=== PATIENT | female | born 1955 | race Asian ===

== ENCOUNTER 2017-08-30 09:10 | Day surgery (SDC) | payer OTHER ==
[2017-08-27 12:05] VITALS: BMI 33.3
[2017-08-30 09:40] LABS: BASO % 0.4 % (0-2.0); EOS % 3.3 % (0-4.5); HEMATOCRIT 35.7 % (32.4-45.2); LYMPH % 21.2 % (8-40); MCH 28.9 pg (25.7-33.7); MCHC 33.8 g/dl (32.0-36.0); MEAN CELL VOLUME 85.7 fl (80-96); MEAN PLT VOLUME 7.2 fl (7.5-11.1); MONO % 12.6 % (3.8-10.2); NEUT % 62.5 % (42.8-82.8); PLATELET COUNT 304 K/MM3 (134-434); RBC 4.16 M/mm3 (3.60-5.2); WHITE BLOOD COUNT 5.4 K/mm3 (4.0-10.0)
[2017-08-30 09:57] LABS: INR 0.99 (0.82-1.09); PROTHROMBIN TIME (PATIENT) 11.2 SEC (9.98-11.88)
[2017-08-30] MEDS ORDERED: PORTA CATH FLUSH 10 ML IVPUSH PRN (11:01)
[2017-08-30] MEDS ORDERED: MIDAZOLAM HCL 2 MG/2 ML SINGLE DOSE VIAL ONE (13:02)
[2017-08-30] MEDS ORDERED: ACETAMINOPHEN 325 MG TABLET (FP) ONE (15:13)
[2017-08-30] MEDS ORDERED: oxyCODONE HCL 5 MG TABLET ONE (15:13)
[2017-08-30 16:11] VITALS: BP 124/69; PULSE 77; TEMP 98.5
== END 2017-08-30 16:16 | disposition home or self-care (01) ==
LOC: JRADIR 09:10
PROVIDERS: ATTEND Internal Medicine Hematology & Oncology
PROC: 02HV33Z Insertion of Infusion Device into Superior Vena Cava, Percutaneous Approach (ICD-10-PCS; principal; 2017-08-30)
PROC: B518ZZA Fluoroscopy of Superior Vena Cava, Guidance (ICD-10-PCS; 2017-08-30)
DX: C18.9 Malignant neoplasm of colon, unspecified (principal)
CPT/HCPCS: 36561; 76937; 77001; C1751; 36415; 85025; 85610; C1788

== ENCOUNTER 2017-09-07 07:30 | Day surgery (SDC) | payer OTHER ==
[2017-09-07] MEDS ORDERED: DEXAMETHASONE SOD PHOSPHATE 10 MG/1 ML VIAL IVPUSH ONE (08:00)
[2017-09-07] MEDS ORDERED: PALONOSETRON HCL 0.25 MG/5 ML VIAL IVPUSH ONE (08:00)
[2017-09-07] MEDS ORDERED: WATER IV ONE (08:30)
[2017-09-07] MEDS ORDERED: DEXTROSE 5% IV ONE (08:30)
[2017-09-07] MEDS ORDERED: LEUCOVORIN INJECTION - 704 MG in DEXTROSE 5%-WATER - 250 ML IVPB ONE (08:30)
[2017-09-07] MEDS ORDERED: OXALIPLATIN IV ONE (08:30)
[2017-09-07 09:26] LABS: BASO % 0.3 % (0-2.0); EOS % 3.2 % (0-4.5); HEMATOCRIT 36.4 % (32.4-45.2); HEMOGLOBIN 12.4 GM/dL (10.7-15.3); MCH 29.3 pg (25.7-33.7); MEAN CELL VOLUME 86.3 fl (80-96); MEAN PLT VOLUME 7.4 fl (7.5-11.1); MONO % 11.3 % (3.8-10.2); NEUT % 68.2 % (42.8-82.8); PLATELET COUNT 283 K/MM3 (134-434); RBC 4.22 M/mm3 (3.60-5.2); RDW 13.5 % (11.6-15.6); WHITE BLOOD COUNT 5.6 K/mm3 (4.0-10.0)
[2017-09-07 09:41] LABS: ALBUMIN 3.6 g/dl (3.4-5.0); ANION GAP 5 (8-16); BILIRUBIN,DIRECT < 0.2 mg/dL (0.0-0.2); BILIRUBIN,TOTAL 0.2 mg/dL (0.2-1.0); BLOOD UREA NITROGEN 14 mg/dL (7-18); CALCIUM 8.5 mg/dL (8.5-10.1); CHLORIDE 110 mmol/L (98-107); CO2 25 mmol/L (21-32); CREATININE 1.1 mg/dL (0.55-1.02); GLUCOSE,RANDOM 85 mg/dL (74-106); SGOT/AST 13 U/L (15-37); SGPT/ALT 27 U/L (12-78); SODIUM 140 mmol/L (136-145); TOT PROT 7.4 g/dl (6.4-8.2)
[2017-09-07 09:42] LABS: ALK PHOS 110 U/L (45-117)
[2017-09-07] MEDS ORDERED: SODIUM CHLORIDE 500 ML IV SCH (10:15)
[2017-09-07] MEDS ORDERED: FLUOROURACIL 2,500 MG/50 ML VIAL IVPUSH ONE (10:30)
[2017-09-07] MEDS ORDERED: FLUOROURACIL 4,225 MG in SODIUM CHLORIDE 7.5 ML CP ONE (10:40)
[2017-09-07 18:37] VITALS: BP 124/72; PULSE 84
[2017-09-07 18:39] VITALS: TEMP 98
== END 2017-09-07 16:15 | disposition home or self-care (01) ==
LOC: JONCCHEMO 07:30 → J7W 10:16 → JONCCHEMO 16:15
PROVIDERS: ATTEND Internal Medicine Hematology & Oncology
DX: Z51.11 Encounter for antineoplastic chemotherapy (principal); C20 Malignant neoplasm of rectum
CPT/HCPCS: 36415; 80053; 80076; 83735; 85025; 96361; 96367; 96375; 96413; 96415; 96417; G0498; J1100; J2469; J7030; J9263

== ENCOUNTER 2017-09-09 07:24 | Day surgery (SDC) | payer OTHER ==
[2017-09-09 14:04] VITALS: BP 107/72; PULSE 83; TEMP 98.3
[2017-09-09] MEDS ORDERED: BACITRACIN 15 GM TUBE TOPICAL OINTMENT TP SCH (14:15)
== END 2017-09-09 14:30 | disposition home or self-care (01) ==
LOC: JONCNONCHE 07:24 → J7W 13:30 → JONCNONCHE 14:30
PROVIDERS: ATTEND Internal Medicine Hematology & Oncology
PROC: 0JPVXVZ Removal of Infusion Pump from Upper Extremity Subcutaneous Tissue and Fascia, External Approach (ICD-10-PCS; principal; 2017-09-09)
DX: Z53.8 Procedure and treatment not carried out for other reasons (principal)

== ENCOUNTER 2017-09-21 07:28 | Day surgery (SDC) | payer OTHER ==
[2017-09-21] MEDS ORDERED: DEXAMETHASONE SOD PHOSPHATE 10 MG/1 ML VIAL IVPUSH ONE (08:00)
[2017-09-21] MEDS ORDERED: PALONOSETRON HCL 0.25 MG/5 ML VIAL IVPUSH ONE (08:00)
[2017-09-21] MEDS ORDERED: LEUCOVORIN INJECTION - 704 MG in DEXTROSE 5%-WATER - 250 ML IVPB ONE (08:30)
[2017-09-21] MEDS ORDERED: OXALIPLATIN 100 MG, OXALIPLATIN 50 MG in DEXTROSE 5%-WATER - 500 ML IV ONE (08:30)
[2017-09-21 09:03] LABS: BASO % 0.2 % (0-2.0); HEMATOCRIT 34.4 % (32.4-45.2); HEMOGLOBIN 11.6 GM/dL (10.7-15.3); LYMPH % 38.9 % (8-40); MCH 28.9 pg (25.7-33.7); MCHC 33.8 g/dl (32.0-36.0); MEAN CELL VOLUME 85.6 fl (80-96); MONO % 15.4 % (3.8-10.2); NEUT % 42.5 % (42.8-82.8); PLATELET COUNT 267 K/MM3 (134-434); RBC 4.03 M/mm3 (3.60-5.2); RDW 14.1 % (11.6-15.6); WHITE BLOOD COUNT 3.3 K/mm3 (4.0-10.0)
[2017-09-21 09:34] LABS: ALBUMIN 3.4 g/dl (3.4-5.0); ALK PHOS 105 U/L (45-117); ANION GAP 7 (8-16); BILIRUBIN,DIRECT < 0.2 mg/dL (0.0-0.2); BILIRUBIN,TOTAL 0.2 mg/dL (0.2-1.0); BLOOD UREA NITROGEN 21 mg/dL (7-18); CALCIUM 8.4 mg/dL (8.5-10.1); CHLORIDE 108 mmol/L (98-107); CO2 21 mmol/L (21-32); CREATININE 1.3 mg/dL (0.55-1.02); GLUCOSE,RANDOM 108 mg/dL (74-106); MAGNESIUM 1.8 mg/dL (1.8-2.4); POTASSIUM 4.2 mmol/L (3.5-5.1); SGOT/AST 18 U/L (15-37); SGPT/ALT 27 U/L (12-78); SODIUM 136 mmol/L (136-145); TOT PROT 6.9 g/dl (6.4-8.2)
[2017-09-21] MEDS ORDERED: DEXAMETHASONE SOD PHOSPHATE 10 MG/1 ML VIAL IVPB ONE (10:30)
[2017-09-21] MEDS ORDERED: FLUOROURACIL 2,500 MG/50 ML VIAL IVPUSH ONE (10:30)
[2017-09-21] MEDS ORDERED: FLUOROURACIL 4,225 MG in SODIUM CHLORIDE 7.5 ML IV ONE (10:40)
[2017-09-21 16:30] VITALS: BP 124/80; PULSE 89
[2017-09-21] MEDS ORDERED: PORTA CATH FLUSH 10 ML IVPUSH ONE (16:30)
[2017-09-21 16:47] VITALS: TEMP 97.6
== END 2017-09-21 11:30 | disposition home or self-care (01) ==
LOC: JONCCHEMO 07:28 → J7W 09:43 → JONCCHEMO 11:30
PROVIDERS: ATTEND Internal Medicine Hematology & Oncology
PROC: 3E043GC Introduction of Other Therapeutic Substance into Central Vein, Percutaneous Approach (ICD-10-PCS; principal; 2017-09-21)
DX: Z51.11 Encounter for antineoplastic chemotherapy (principal); C20 Malignant neoplasm of rectum; Z53.8 Procedure and treatment not carried out for other reasons
CPT/HCPCS: 36415; 80053; 80076; 83735; 85025; 96417; J1100

== ENCOUNTER 2017-09-28 07:26 | Day surgery (SDC) | payer OTHER ==
[2017-09-28] MEDS ORDERED: DEXAMETHASONE IVPB ONE (08:00)
[2017-09-28] MEDS ORDERED: SODIUM CHLORIDE IVPB ONE (08:00)
[2017-09-28] MEDS ORDERED: DIPHENHYDRAMINE IVPB ONE (08:00)
[2017-09-28] MEDS ORDERED: PALONOSETRON HCL 0.25 MG/5 ML VIAL IVPUSH ONE (08:00)
[2017-09-28] MEDS ORDERED: DEXAMETHASONE SOD PHOSPHATE 10 MG/1 ML VIAL IVPUSH ONE (08:00)
[2017-09-28] MEDS ORDERED: LEUCOVORIN INJECTION - 704 MG in DEXTROSE 5%-WATER - 250 ML IVPB ONE (08:30)
[2017-09-28] MEDS ORDERED: OXALIPLATIN 100 MG, OXALIPLATIN 50 MG in DEXTROSE 5%-WATER - 500 ML IV ONE (08:30)
[2017-09-28 09:52] LABS: HEMOGLOBIN 11.8 GM/dL (10.7-15.3); MCH 29.2 pg (25.7-33.7); MCHC 33.7 g/dl (32.0-36.0); MEAN CELL VOLUME 86.8 fl (80-96); MEAN PLT VOLUME 7.1 fl (7.5-11.1); PLATELET COUNT 324 K/MM3 (134-434); RBC 4.04 M/mm3 (3.60-5.2); RDW 14.7 % (11.6-15.6); WHITE BLOOD COUNT 7.1 K/mm3 (4.0-10.0)
[2017-09-28 10:08] LABS: ALBUMIN 3.5 g/dl (3.4-5.0); ANION GAP 5 (8-16); BILIRUBIN,DIRECT < 0.2 mg/dL (0.0-0.2); BLOOD UREA NITROGEN 9 mg/dL (7-18); CALCIUM 8.8 mg/dL (8.5-10.1); CHLORIDE 107 mmol/L (98-107); CO2 26 mmol/L (21-32); CREATININE 1.1 mg/dL (0.55-1.02); GLUCOSE,RANDOM 114 mg/dL (74-106); MAGNESIUM 1.9 mg/dL (1.8-2.4); POTASSIUM 4.3 mmol/L (3.5-5.1); SGOT/AST 24 U/L (15-37); SGPT/ALT 32 U/L (12-78); SODIUM 138 mmol/L (136-145)
[2017-09-28 10:09] LABS: ALK PHOS 100 U/L (45-117); BILIRUBIN,TOTAL 0.2 mg/dL (0.2-1.0); TOT PROT 7.1 g/dl (6.4-8.2)
[2017-09-28] MEDS ORDERED: FLUOROURACIL 2,500 MG/50 ML VIAL IVPUSH ONE (10:30)
[2017-09-28] MEDS ORDERED: FLUOROURACIL 4,225 MG in SODIUM CHLORIDE 7.5 ML CP ONE (10:45)
[2017-09-28] MEDS ORDERED: SODIUM CHLORIDE 500 ML IV SCH (11:45)
[2017-09-28 13:17] LABS: PLATELET ESTIMATE NORMAL
[2017-09-28 15:35] VITALS: BP 132/78; PULSE 72; TEMP 97.6
== END 2017-09-28 15:20 | disposition home or self-care (01) ==
LOC: JONCCHEMO 07:26 → J7W 10:00 → JONCCHEMO 15:20
PROVIDERS: ATTEND Internal Medicine Hematology & Oncology
DX: Z51.11 Encounter for antineoplastic chemotherapy (principal); C20 Malignant neoplasm of rectum
CPT/HCPCS: 36415; 80053; 80076; 83735; 85025; 96367; 96375; 96409; 96413; 96415; 96417; G0498; J1100; J2469; J9263

== ENCOUNTER 2017-10-12 07:19 | Day surgery (SDC) | payer OTHER ==
[2017-10-12] MEDS ORDERED: DEXAMETHASONE INJECTION 20 MG in SODIUM CHLORIDE 100 ML IVPB ONE (10:00)
[2017-10-12] MEDS ORDERED: PALONOSETRON HCL 0.25 MG/5 ML VIAL IVPUSH ONE (10:00)
[2017-10-12] MEDS ORDERED: DEXAMETHASONE SOD PHOSPHATE 10 MG/1 ML VIAL IVPUSH ONE (10:00)
[2017-10-12] MEDS ORDERED: OXALIPLATIN IV ONE (10:30)
[2017-10-12] MEDS ORDERED: WATER IV ONE (10:30)
[2017-10-12] MEDS ORDERED: DEXTROSE 5% IV ONE (10:30)
[2017-10-12] MEDS ORDERED: LEUCOVORIN INJECTION - 704 MG in DEXTROSE 5%-WATER - 250 ML IVPB ONE (10:30)
[2017-10-12 11:23] LABS: BASO % 0.3 % (0-2.0); EOS % 8.1 % (0-4.5); HEMATOCRIT 34.4 % (32.4-45.2); HEMOGLOBIN 11.8 GM/dL (10.7-15.3); LYMPH % 33.3 % (8-40); MCH 29.4 pg (25.7-33.7); MCHC 34.4 g/dl (32.0-36.0); MEAN CELL VOLUME 85.6 fl (80-96); MEAN PLT VOLUME 7.3 fl (7.5-11.1); MONO % 18.5 % (3.8-10.2); NEUT % 39.8 % (42.8-82.8); PLATELET COUNT 228 K/MM3 (134-434); RBC 4.02 M/mm3 (3.60-5.2); RDW 14.8 % (11.6-15.6); WHITE BLOOD COUNT 2.7 K/mm3 (4.0-10.0)
[2017-10-12 12:00] LABS: ALBUMIN 3.8 g/dl (3.4-5.0); ALK PHOS 108 U/L (45-117); ANION GAP 9 (8-16); BILIRUBIN,TOTAL 0.3 mg/dL (0.2-1.0); BLOOD UREA NITROGEN 12 mg/dL (7-18); CHLORIDE 107 mmol/L (98-107); CO2 22 mmol/L (21-32); CREATININE 1.4 mg/dL (0.55-1.02); GLUCOSE,RANDOM 117 mg/dL (74-106); POTASSIUM 4.9 mmol/L (3.5-5.1); SGOT/AST 20 U/L (15-37); SGPT/ALT 27 U/L (12-78); SODIUM 138 mmol/L (136-145); TOT PROT 7.4 g/dl (6.4-8.2)
[2017-10-12 12:28] LABS: ALBUMIN 3.6 g/dl (3.4-5.0); ALK PHOS 108 U/L (45-117); BILIRUBIN,DIRECT < 0.2 mg/dL (0.0-0.2); BILIRUBIN,TOTAL 0.2 mg/dL (0.2-1.0); MAGNESIUM 1.9 mg/dL (1.8-2.4); SGOT/AST 21 U/L (15-37); SGPT/ALT 26 U/L (12-78); TOT PROT 7.3 g/dl (6.4-8.2)
[2017-10-12] MEDS ORDERED: FLUOROURACIL 500 MG/10 ML VIAL IVPUSH ONE (12:30)
[2017-10-12] MEDS ORDERED: FLUOROURACIL 4,225 MG in SODIUM CHLORIDE 7.5 ML IV ONE (12:45)
[2017-10-12] MEDS ORDERED: SODIUM CHLORIDE 1,000 ML IV SCH (13:30)
[2017-10-12 17:18] VITALS: TEMP 98
[2017-10-12 17:31] VITALS: BP 96/68; PULSE 72
== END 2017-10-12 17:31 | disposition home or self-care (01) ==
LOC: JONCCHEMO 07:19 → J7W 13:10 → JONCCHEMO 17:31
PROVIDERS: ATTEND Internal Medicine Hematology & Oncology
DX: Z51.11 Encounter for antineoplastic chemotherapy (principal); C20 Malignant neoplasm of rectum
CPT/HCPCS: 36415; 80053; 80076; 83735; 85025; 96361; 96366; 96367; 96375; 96413; 96415; 96417; J1100; J2469; J7030; J9263

== ENCOUNTER 2017-10-15 07:37 | Day surgery (SDC) | payer OTHER ==
[2017-10-15] MEDS ORDERED: TBO-FILGRASTIM 480 MCG/0.8 ML DISP.SYRIN SQ ONE (10:00)
[2017-10-15] MEDS ORDERED: SODIUM CHLORIDE 500 ML IV SCH (10:15)
[2017-10-15 11:37] VITALS: TEMP 97.8
[2017-10-15 12:45] VITALS: BP 115/71; PULSE 81
== END 2017-10-15 12:47 | disposition home or self-care (01) ==
LOC: JONCCHEMO 07:37 → J7W 09:20 → JONCCHEMO 12:47
PROVIDERS: ATTEND Internal Medicine Hematology & Oncology
PROC: 3E0437Z Introduction of Electrolytic and Water Balance Substance into Central Vein, Percutaneous Approach (ICD-10-PCS; principal; 2017-10-15)
PROC: 3E013GC Introduction of Other Therapeutic Substance into Subcutaneous Tissue, Percutaneous Approach (ICD-10-PCS; 2017-10-15)
DX: C20 Malignant neoplasm of rectum (principal); Z76.89 Persons encountering health services in other specified circumstances
CPT/HCPCS: 96360; 96361; 96372; J1447; J7030

== ENCOUNTER 2017-10-16 09:42 | Day surgery (SDC) | payer OTHER ==
[2017-10-16] MEDS ORDERED: TBO-FILGRASTIM 480 MCG/0.8 ML DISP.SYRIN SQ ONE (10:00)
[2017-10-16] MEDS ORDERED: TBO-FILGRASTIM 300 MCG/0.5 ML DISP.SYRINGE SQ ONE (11:00)
[2017-10-16 13:45] VITALS: BP 114/75; PULSE 95; TEMP 98.1
== END 2017-10-16 11:56 | disposition home or self-care (01) ==
LOC: JONCCHEMO 09:42 → J7W 09:52 → JONCCHEMO 11:56
PROVIDERS: ATTEND Internal Medicine Hematology & Oncology
PROC: 3E013GC Introduction of Other Therapeutic Substance into Subcutaneous Tissue, Percutaneous Approach (ICD-10-PCS; principal; 2017-10-16)
DX: C20 Malignant neoplasm of rectum (principal); Z76.89 Persons encountering health services in other specified circumstances
CPT/HCPCS: 96372; J1447

== ENCOUNTER 2017-10-18 07:47 | Day surgery (SDC) | payer OTHER ==
[2017-10-18] MEDS ORDERED: TBO-FILGRASTIM 480 MCG/0.8 ML DISP.SYRIN SQ ONE (10:00)
[2017-10-18 13:39] VITALS: BP 139/77; PULSE 94; TEMP 97.9
== END 2017-10-18 11:00 | disposition home or self-care (01) ==
LOC: JONCCHEMO 07:47 → J7W 10:29 → JONCCHEMO 11:00
PROVIDERS: ATTEND Internal Medicine Hematology & Oncology
PROC: 3E013GC Introduction of Other Therapeutic Substance into Subcutaneous Tissue, Percutaneous Approach (ICD-10-PCS; principal; 2017-10-18)
DX: C20 Malignant neoplasm of rectum (principal); Z76.89 Persons encountering health services in other specified circumstances
CPT/HCPCS: 96372; J1447

== ENCOUNTER 2017-10-26 07:33 | Inpatient (IN) | payer OTHER ==
[2017-10-26 09:15] LABS: HEMATOCRIT 37.9 % (32.4-45.2); HEMOGLOBIN 13.2 GM/dL (10.7-15.3); MCH 30.5 pg (25.7-33.7); MCHC 34.9 g/dl (32.0-36.0); MEAN CELL VOLUME 87.3 fl (80-96); MEAN PLT VOLUME 8.3 fl (7.5-11.1); PLATELET COUNT 141 K/MM3 (134-434); RBC 4.34 M/mm3 (3.60-5.2); RDW 16.9 % (11.6-15.6); WHITE BLOOD COUNT 10.3 K/mm3 (4.0-10.0)
[2017-10-26] MEDS ORDERED: SODIUM CHLORIDE 500 ML IV STA (09:49)
[2017-10-26 09:53] LABS: ALBUMIN 3.3 g/dl (3.4-5.0); ALK PHOS 105 U/L (45-117); ANION GAP 7 (8-16); BILIRUBIN,DIRECT < 0.2 mg/dL (0.0-0.2); BILIRUBIN,TOTAL 0.3 mg/dL (0.2-1.0); BLOOD UREA NITROGEN 24 mg/dL (7-18); CALCIUM 8.6 mg/dL (8.5-10.1); CHLORIDE 106 mmol/L (98-107); CO2 21 mmol/L (21-32); CREATININE 1.6 mg/dL (0.55-1.02); GLUCOSE,RANDOM 120 mg/dL (74-106); MAGNESIUM 1.6 mg/dL (1.8-2.4); POTASSIUM 4.4 mmol/L (3.5-5.1); SGOT/AST 28 U/L (15-37); SGPT/ALT 49 U/L (12-78); SODIUM 134 mmol/L (136-145); TOT PROT 6.6 g/dl (6.4-8.2)
[2017-10-26] MEDS ORDERED: DEXAMETHASONE INJECTION 10 MG in SODIUM CHLORIDE 50 ML IVPB ONE (10:00)
[2017-10-26] MEDS ORDERED: PALONOSETRON HCL 0.25 MG/5 ML VIAL IVPUSH ONE (10:00)
[2017-10-26] MEDS ORDERED: DEXTROSE 5% IV ONE (10:30)
[2017-10-26] MEDS ORDERED: LEUCOVORIN INJECTION - 704 MG in DEXTROSE 5%-WATER - 250 ML IVPB ONE (10:30)
[2017-10-26] MEDS ORDERED: WATER IV ONE (10:30)
[2017-10-26] MEDS ORDERED: OXALIPLATIN IV ONE (10:30)
[2017-10-26 10:56] LABS: PLATELET ESTIMATE NORMAL; TEAR DROP CELLS 1+
[2017-10-26] MEDS ORDERED: MAGNESIUM 1GM/D5W 100ML - 100 ML IVPB IVPB ONE (12:05)
[2017-10-26] MEDS ORDERED: SODIUM CHLORIDE 1,000 ML IV SCH ×3 (12:15→15:11)
[2017-10-26] MEDS ORDERED: FLUOROURACIL 4,225 MG in SODIUM CHLORIDE 7.5 ML CP ONE (12:30)
[2017-10-26] MEDS ORDERED: EPINEPHrine/PF 1 MG/1 ML (1:1,000) AMPULE IM ONE (13:30)
[2017-10-26] MEDS ORDERED: methylPREDNISolone NA SUCC 125 MG/2 ML VIAL IVPUSH ONE (13:30)
[2017-10-26] MEDS ORDERED: FAMOTIDINE 20 MG/50 ML IVPB 20 MG/50 ML MG IVPB ONE (13:40)
--- NOTE | 2017-10-26 13:43 | RAPID ---
Physical Examination Vital Signs: Vital Signs Temperature 97.6 F 10/26/17 10:15 Pulse Rate 86 10/26/17 10:15 Respiratory Rate 20 10/26/17 10:15 Blood Pressure 121/81 10/26/17 10:15 O2 Sat by Pulse Oximetry (%) Labs: CBC, BMP 10/26/17 08:50 10/26/17 08:50 Rapid Response - Rapid Response Assessment: Rapid response called at 1:34 PM Pt is a cancer patient who was receiving her leucovorin and oxaliplatin infusion and was found to have shortness of breath and tachycardia. Infusion had been completed, and patient walked to the bathroom and back to her seat at which point she became symptomatic. Initial vital signs 149/85 HR 158, O2 sat 85, Resp 28 1:40 PM 162/87, HR 155 Pt aaox3 in respiratory distress. Pt was given: Benadryl 50mg Epi sub Q 1 mg Solumedrol 125 IV Famotidine Decadron 20mg Albuterol nebs CXR, EKG, Pulm consult Pt to be admitted under primary care doc. Pt currently stable and no longer in distress. Edgar Arias MD PGY-1 IM
[2017-10-26] MEDS ORDERED: DEXAMETHASONE SOD PHOSPHATE 10 MG/1 ML VIAL IVPB ONE (13:48)
[2017-10-26] MEDS ORDERED: DEXAMETHASONE SOD PHOSPHATE 10 MG/1 ML VIAL ONE (13:55)
[2017-10-26] MEDS ORDERED: ALBUTEROL SO4 0.083% IH SOL 2.5 MG/3 ML VIAL.NEB. NEB PRN ×2 (14:24→15:02)
[2017-10-26] MEDS ORDERED: ALBUTEROL SO4 0.083% IH SOL 2.5 MG/3 ML VIAL.NEB. NEB ONE (14:30)
--- NOTE | 2017-10-26 14:40 | EKG ---
Test Reason : Blood Pressure : / mmHG Vent. Rate : 120 BPM Atrial Rate : 120 BPM P-R Int : 000 ms QRS Dur : 106 ms QT Int : 396 ms P-R-T Axes : 000 -47 054 degrees QTc Int : 559 ms SINUS TACHYCARDIA LEFT AXIS DEVIATION INCOMPLETE RIGHT BUNDLE BRANCH BLOCK PROLONGED QT ABNORMAL ECG NO PREVIOUS ECGS AVAILABLE Confirmed by MD Jose, Oscar ([id number]) on 10/26/2017 2:40:08 PM Referred By: LEANA CURTIS Confirmed By:Oscar Garcia MD
--- NOTE | 2017-10-26 14:43 | PN ---
Progress Note (short form) - Note Progress Note: is here for adjuvant FOLFOX ( C4 ) h/o rectal Ca, s/p leslie-adjuvant chemo with Xeloda RT / surgery and presently on adjuvant FOLFOX. Rapid response called today AFTER completion of oxaliplatin. Vitals noted. O/E: IN acute distress NCAT Tachy +stridor poor inspiratory effort No CCE Labs noted from this am. Assessment/Plan: Severe HSN reaction, oxaliplatin induced. Plan: s/p meds per protocol now pt back to baseline admit cxr pulm c/s Renal c/s for Cr of 1.6 close observation IVF. not to hang 5FU pump. PMD made aware Temp Pulse Resp BP Pulse Ox 97.6 F 86 20 121/81 10/26/17 10:15 10/26/17 10:15 10/26/17 10:15 10/26/17 10:15 CBC, BMP 10/26/17 08:50 10/26/17 08:50 Current Medications Generic Name Dose Route Start Last Admin Trade Name Freq PRN Reason Stop Dose Admin Albuterol Sulfate 1 amp 10/26/17 14:24 Ventolin 0.083% Nebulizer Soln - NEB Q1H PRN SHORT OF BREATH/WHEEZING Fluorouracil 4,225 mg/ Sodium 92 mls @ 2 mls/hr 10/26/17 12:30 Chloride CP 10/28/17 10:29 ONCE ONE Sodium Chloride 1,000 mls @ 250 mls/hr 10/26/17 12:15 10/26/17 13:13 Normal Saline - IV 250 mls/hr ASDIR KENNY Administration Sodium Chloride 1,000 mls @ 75 mls/hr 10/26/17 14:00 Normal Saline - IV ASDIR KENNY
--- NOTE | 2017-10-26 14:48 | CON.PULM ---
Consult Consult Specialty:: PULM/CCM Referred by:: SAUL Reason for Consultation:: SOB - History of Present Illness Chief Complaint: SOB History of Present Illness: 62 F, known Rectal CA, S/P colostomy placement. Today was receiving her 4th cycle of leucovorin and oxaliplatin infusion. Infusion was complete and she ambulated to the bathroom and developed acute onset of shortness of breath, chest tightness, and tachycardia. O2 saturation was noted to drop to 77%. She placed on supplemental O2 and and was given: Benadryl 50mg / Epi sub Q 1 mg / Solumedrol 125 IV / Famotidine / Decadron 20mg / Albuterol nebs Currently she is awake and alert on 2 L NC O2 saturating 100%. At this time she denies CP or SOB. She reports feeling weak and tired. CXR: Clear / no acute process - History Source History Provided By: Patient Limitations to Obtaining History: Language Barrier - Past Medical History Gastrointestinal: Yes: Cancer - Alcohol/Substance Use Hx Alcohol Use: No - Smoking History Smoking history: Never smoked Have you smoked in the past 12 months: No Home Medications - Allergies Allergies/Adverse Reactions: Allergies Allergy/AdvReac Type Severity Reaction Status Date / Time No Known Allergies Allergy Verified 08/30/17 09:51 - Home Medications Home Medications: Ambulatory Orders Amlodipine Besylate 5 mg PO HS 08/27/17 Levothyroxine [Synthroid -] 25 mcg PO DAILY 08/27/17 Metoprolol Succinate [Toprol Xl] 50 mg PO DAILY 08/27/17 Review of Systems - Review of Systems Constitutional: reports: Malaise. denies: Chills, Fever, Night Sweats, Unintentional Wgt. Loss, Weakness Eyes: reports: No Symptoms HENT: reports: No Symptoms Neck: reports: No Symptoms Cardiovascular: reports: Shortness of Breath. denies: Chest Pain, Edema, Palpitations Respiratory: reports: Cough, SOB, SOB on Exertion, Wheezing. denies: Hemoptysis Gastrointestinal: reports: No Symptoms. denies: Abdominal Pain, Constipation, Melena, Rectal Bleeding, Vomiting, Vomiting Blood Genitourinary: reports: No Symptoms Breasts: reports: No Symptoms Reported Musculoskeletal: reports: No Symptoms Integumentary: reports: No Symptoms Neurological: reports: No Symptoms Endocrine: reports: No Symptoms Hematology/Lymphatic: reports: No Symptoms Psychiatric: reports: No Symptoms Physical Exam Vital Sings: Vital Signs Temperature 97.6 F 10/26/17 10:15 Pulse Rate 86 10/26/17 10:15 Respiratory Rate 20 10/26/17 10:15 Blood Pressure 121/81 10/26/17 10:15 O2 Sat by Pulse Oximetry (%) Constitutional: Yes: No Distress, Calm Eyes: Yes: Conjunctiva Clear, EOM Intact HENT: Yes: Atraumatic, Normocephalic Neck: Yes: Supple, Trachea Midline Cardiovascular: Yes: Regular Rate and Rhythm Respiratory: Yes: CTA Bilaterally, On Nasal O2. No: Accessory Muscle Use, Rales , Rhonchi, Stridor, Tachypnea ...Inspection: Yes: WNL ...Clubbing: No Gastrointestinal: Yes: WNL, Normal Bowel Sounds, Soft Renal/: Yes: WNL Musculoskeletal: Yes: WNL Extremities: Yes: WNL Edema: No Peripheral Pulses WNL: Yes Integumentary: Yes: WNL Neurological: Yes: WNL, Alert, Oriented ...Motor Strength: WNL Psychiatric: Yes: WNL, Alert, Oriented Labs: CBC, BMP 10/26/17 08:50 10/26/17 08:50 Imaging - Results Chest X-ray: Image Reviewed Problem List - Problems (1) Rectal cancer Code(s): C20 - MALIGNANT NEOPLASM OF RECTUM (2) Shortness of breath Code(s): R06.02 - SHORTNESS OF BREATH (3) Acute bronchospasm Code(s): J98.01 - ACUTE BRONCHOSPASM (4) Obesity Code(s): E66.9 - OBESITY, UNSPECIFIED (5) Renal insufficiency Code(s): N28.9 - DISORDER OF KIDNEY AND URETER, UNSPECIFIED Assessment/Plan Medrol O2 to maintain saturation BD TX Cardiology evaluation called for prolonged QT on EKG IVF No clear reason to continue PPI Low threshold to check cultures and ABX for febrile illness Currently stable on NC O2, but can be moved to a monitored setting if her clinical condition changes Will follow Thank you Dr Clifton
--- NOTE | 2017-10-26 15:10 | CONSULT ---
Consult - text type - Consultation Consultation Note: Renal Consult for FABIAN This is a 62 year old woman with PMhx of Rectal Ca s/p resection and colostomy who was admitted s/p hypersensativity reaction during chemo infusion today. Pt noted to have rising Cr and was 1.6 today. Pt denies any history of kidney disease, kidney stones. Denies any NSAID use. Unclear if she had any recent contrast exposure. Pt reports having very loose output from her ostomy yesterday and filled up 4-5 bags. Making urine today, no hematuria. No sob or chest pain now. PMhx: as above Allergies: NDKA family Hx: NC Social hx: No T/A/D ROS: as per HPI Vital Signs Temperature 97.6 F 10/26/17 10:15 Pulse Rate 86 10/26/17 10:15 Respiratory Rate 20 10/26/17 10:15 Blood Pressure 121/81 10/26/17 10:15 O2 Sat by Pulse Oximetry (%) Intake & Output 10/23/17 10/24/17 10/25/17 10/26/17 23:59 23:59 23:59 23:59 Weight 68.946 kg NAD, awake and alert MMM, No JVD Neck supple RRR, No M/R CTA soft NT/ND + ostomy No LE edema CBC, BMP 10/26/17 08:50 10/26/17 08:50 Laboratory Tests 10/26/17 08:50 Calcium 8.6 Magnesium 1.6 L Albumin 3.3 L Current Medications Albuterol Sulfate (Ventolin 0.083% Nebulizer Soln -) 1 amp NEB RTID KENNY Albuterol Sulfate (Ventolin 0.083% Nebulizer Soln -) 1 amp NEB Q4H PRN PRN Reason: SHORT OF BREATH/WHEEZING Fluorouracil 4,225 mg/ Sodium (Chloride) 92 mls @ 2 mls/hr CP ONCE ONE Stop: 10/28/17 10:29 Sodium Chloride (Normal Saline -) 1,000 mls @ 250 mls/hr IV ASDIR KENNY Last Admin: 10/26/17 13:13 Dose: 250 mls/hr Sodium Chloride (Normal Saline -) 1,000 mls @ 75 mls/hr IV ASDIR KENNY Methylprednisolone Sodium Succinate (Solu-Medrol -) 40 mg IVPUSH Q8H-IV KENNY 62 year old woman with PMhx of Rectal Ca s/p resection and colostomy who was admitted s/p hypersensativity reaction during chemo infusion today with Cr of 1.6. #FABIAN likely secondary to volume depletion vs AIN vs. obstruction, unlikely tumor lysis as pt has a solid tumor or chemo induced #Rectal Ca on Chemo #Hypersensativity reaction #Hypomagnesemia Check urine studies for FeNa, UPCR, Urine Eos Renal US to access kidney size and texture Continue IVF hydration with NS at 100cc per hours x 24 hours Continue supportive care Give Mg sulfate 2g IVPB Thank you Will follow Yomi Flores DO
[2017-10-26] MEDS: methylPREDNISolone NA SUCC 40 MG/1 ML VIAL IVPUSH SCH (18:03)
[2017-10-26 19:42] LABS: URINE APPEARANCE CLEAR; URINE BILIRUBIN NEGATIVE (<2.0 mg/dL); URINE COLOR COLORLESS; URINE GLUCOSE (UA) NEGATIVE (NEGATIVE); URINE KETONE NEGATIVE (NEGATIVE); URINE LEUK ESTERASE NEGATIVE (NEGATIVE); URINE NITRITE NEGATIVE (NEGATIVE); URINE PROTEIN NEGATIVE (NEGATIVE); URINE UROBILINOGEN NEGATIVE mg/dL (0.2-1.0)
[2017-10-26 19:56] LABS: URINE CREATININE < 13.0 mg/dL (20-320)
[2017-10-26] MEDS: ALBUTEROL SO4 0.083% IH SOL 2.5 MG/3 ML VIAL.NEB. NEB SCH (20:48)
[2017-10-27] MEDS: methylPREDNISolone NA SUCC 40 MG/1 ML VIAL IVPUSH SCH ×3 (02:17→18:19)
[2017-10-27] MEDS: LEVOTHYROXINE NA 25 MCG TABLET (FP) PO SCH (06:31)
[2017-10-27] MEDS ORDERED: LEVOTHYROXINE NA 25 MCG TABLET (FP) PO SCH (07:00)
[2017-10-27] MEDS: ALBUTEROL SO4 0.083% IH SOL 2.5 MG/3 ML VIAL.NEB. NEB SCH ×3 (07:40→20:44)
[2017-10-27 09:21] LABS: HEMATOCRIT 28.8 % (32.4-45.2); MCH 30.1 pg (25.7-33.7); MCHC 34.9 g/dl (32.0-36.0); MEAN CELL VOLUME 86.2 fl (80-96); MEAN PLT VOLUME 8.1 fl (7.5-11.1); PLATELET COUNT 121 K/MM3 (134-434); RBC 3.34 M/mm3 (3.60-5.2); RDW 17.3 % (11.6-15.6); WHITE BLOOD COUNT 12.4 K/mm3 (4.0-10.0)
--- NOTE | 2017-10-27 09:33 | PN ---
Progress Note (short form) - Note Progress Note: seen and examined son at bedside she continues to feel better. all the consult notes reviewed/appreciated O/E: NO acute distress NCAT cor:RRR abd: Colostomy No CCE Last Vital Signs Temp Pulse Resp BP Pulse Ox 97.9 F 75 20 95/57 98 10/27/17 06:13 10/27/17 06:13 10/27/17 06:13 10/27/17 06:13 10/26/17 22:21 CBC, BMP 10/27/17 06:00 Current Medications Generic Name Dose Route Start Last Admin Trade Name Freq PRN Reason Stop Dose Admin Albuterol Sulfate 1 amp 10/26/17 20:00 10/27/17 07:40 Ventolin 0.083% Nebulizer Soln - NEB 1 amp RTID KENNY Administration Albuterol Sulfate 1 amp 10/26/17 15:02 Ventolin 0.083% Nebulizer Soln - NEB Q4H PRN SHORT OF BREATH/WHEEZING Sodium Chloride 1,000 mls @ 100 mls/hr 10/26/17 15:11 10/26/17 16:35 Normal Saline - IV 100 mls/hr ASDIR KENNY Administration Levothyroxine Sodium 25 mcg 10/27/17 07:00 10/27/17 06:31 Synthroid - PO 25 mcg DAILY@0700 KENNY Administration Methylprednisolone Sodium Succinate 40 mg 10/26/17 18:00 10/27/17 02:17 Solu-Medrol - IVPUSH 40 mg Q8H-IV KENNY Administration Metoprolol Succinate 50 mg 10/26/17 19:00 10/26/17 21:29 Toprol Xl - PO Not Given DAILY KENNY Pantoprazole Sodium 40 mg 10/27/17 10:00 Protonix - PO DAILY KENNY Rectal Ca on Adjuvant FOLFOX S/p SEvere HSN reaction to [place] based chemo. now resolved FABIAN prolonged QTc Monitor CBC Monitor Cr pulm f/u, on steroids renal meng on going await cardiology w/u nutrition c/s OOB to chair d/w son about the plan
[2017-10-27] MEDS ORDERED: amLODIPine BESYLATE 5 MG TABLET (FP) PO SCH (10:00)
[2017-10-27 10:43] LABS: CHLORIDE 113 mmol/L (98-107); POTASSIUM 3.8 mmol/L (3.5-5.1); SODIUM 140 mmol/L (136-145)
[2017-10-27 11:02] LABS: ACANTHOCYTES 1+; ANISOCYTOSIS 1+; OVALOCYTE 1+; PLATELET ESTIMATE DECREASED; TEAR DROP CELLS 1+
[2017-10-27] MEDS: PANTOPRAZOLE 40 MG TABLET (FP) PO SCH (11:09)
--- NOTE | 2017-10-27 11:37 | CON.CARD ---
Consult Consult Specialty:: Cardiology Referred by:: Heme-Onc Reason for Consultation:: Prolonged QT interval - History of Present Illness Chief Complaint: Dyspnea History of Present Illness: 62 F, known Rectal CA, S/P colostomy placement received her 4th cycle of leucovorin and oxaliplatin infusion yesterday. Infusion was complete and she ambulated to the bathroom and developed acute onset of shortness of breath, chest tightness, and tachycardia. O2 saturation was noted to drop to 77%. She placed on supplemental O2 and and was given: Benadryl 50mg / Epi sub Q 1 mg / Solumedrol 125 IV / Famotidine / Decadron 20mg / Albuterol nebs with relief of symptoms, currently she is awake and alert on RA. She denies CP or SOB, near or true syncope, palpitations, orthopnea, PND or LE edema. She reports feeling weak and tired. - History Source History Provided By: Medical Record Limitations to Obtaining History: Language Barrier - Past Medical History Gastrointestinal: Yes: Cancer - Alcohol/Substance Use Hx Alcohol Use: No - Smoking History Smoking history: Never smoked Have you smoked in the past 12 months: No Home Medications - Allergies Allergies/Adverse Reactions: Allergies Allergy/AdvReac Type Severity Reaction Status Date / Time cisplatin Allergy Verified 10/26/17 19:23 - Home Medications Home Medications: Ambulatory Orders Amlodipine Besylate 5 mg PO HS 08/27/17 Levothyroxine [Synthroid -] 25 mcg PO DAILY 08/27/17 Metoprolol Succinate [Toprol Xl] 50 mg PO DAILY 08/27/17 Review of Systems - Review of Systems Respiratory: reports: SOB Vital Signs: Vital Signs Temperature 97.9 F 10/27/17 06:13 Pulse Rate 75 10/27/17 06:13 Respiratory Rate 20 10/27/17 06:13 Blood Pressure 95/57 10/27/17 06:13 O2 Sat by Pulse Oximetry (%) 98 10/26/17 22:21 Constitutional: Yes: No Distress, Calm Neck: Yes: Supple Respiratory: Yes: Regular, Diminished Gastrointestinal: Yes: Normal Bowel Sounds, Soft, Abdomen, Obese Cardiovascular: Yes: Regular Rate and Rhythm Heart Sounds: Yes: S1, S2 Edema: No - Other Data Labs, Other Data: CBC, BMP 10/27/17 06:00 Imaging - Results Chest X-ray: Report Reviewed (NAD) Problem List - Problems (1) Prolonged QT interval Code(s): R94.31 - ABNORMAL ELECTROCARDIOGRAM [ECG] [EKG] (2) Acute bronchospasm Code(s): J98.01 - ACUTE BRONCHOSPASM (3) Rectal cancer Code(s): C20 - MALIGNANT NEOPLASM OF RECTUM (4) Renal insufficiency Code(s): N28.9 - DISORDER OF KIDNEY AND URETER, UNSPECIFIED (5) Hypothyroidism Code(s): E03.9 - HYPOTHYROIDISM, UNSPECIFIED Qualifiers: Hypothyroidism type: unspecified Qualified Code(s): E03.9 - Hypothyroidism , unspecified (6) Hypersensitivity reaction Code(s): T78.40XA - ALLERGY, UNSPECIFIED, INITIAL ENCOUNTER Qualifiers: Encounter type: subsequent encounter Qualified Code(s): T78.40XD - Allergy , unspecified, subsequent encounter Assessment/Plan 1. Rectal Ca on Adjuvant FOLFOX 2. S/p hypersensitivity reaction to [place] based chemo. now resolved 3. FABIAN likely secondary to volume depletion vs AIN vs. obstruction 4. prolonged QTc 5. Hypothyroidism P:1. Repeat ECG, keep K>4.0, Mg>2.0, replete Mg as you are, avoid QT-prolonging agents, check TSH 2. BD, steroid taper with GI protection, O2 as needed 3. Renal eval in progress, IV hydration with monitor renal function and electrolytes 4. Decrease Toprol XL 25 qd as hemodynamic tolerate 5. Thank you for consultative opportunity
[2017-10-27 12:00] LABS: ALBUMIN 2.6 g/dl (3.4-5.0); ALK PHOS 84 U/L (45-117); ANION GAP 13 (8-16); BILIRUBIN,TOTAL 0.1 mg/dL (0.2-1.0); BLOOD UREA NITROGEN 19 mg/dL (7-18); CALCIUM 7.8 mg/dL (8.5-10.1); CO2 14 mmol/L (21-32); CREATININE 1.4 mg/dL (0.55-1.02); GLUCOSE,RANDOM 145 mg/dL (74-106); MAGNESIUM 1.7 mg/dL (1.8-2.4); PHOSPHOROUS 2.9 mg/dL (2.5-4.9); SGOT/AST 21 U/L (15-37); SGPT/ALT 38 U/L (12-78); TOT PROT 5.1 g/dl (6.4-8.2)
[2017-10-27 12:01] VITALS: BMI 30.7
--- NOTE | 2017-10-27 13:31 | PN ---
Progress Note (short form) - Note Progress Note: Renal follow up for FABIAN Pt seen and examined at the bedside reports feeling weak throughout her body no fever, chills, N/V emptied her ostomy bag 3x yesterday no abd pain Vital Signs Temperature 97.9 F 10/27/17 06:13 Pulse Rate 75 10/27/17 06:13 Respiratory Rate 20 10/27/17 06:13 Blood Pressure 95/57 10/27/17 06:13 O2 Sat by Pulse Oximetry (%) 98 10/26/17 22:21 Intake & Output 10/24/17 10/25/17 10/26/17 10/27/17 23:59 23:59 23:59 23:59 Intake Total 50 1460 Balance 50 1460 Weight 68.946 kg 68.946 kg NAD, awake and alert RRR, No M/R CTA soft NT/ND + ostomy No LE edema CBC, BMP 10/27/17 06:00 10/27/17 06:00 Laboratory Tests 10/27/17 06:00 Calcium 7.8 L Phosphorus 2.9 Magnesium 1.7 L Albumin 2.6 L Current Medications Albuterol Sulfate (Ventolin 0.083% Nebulizer Soln -) 1 amp NEB RTID [facility] Last Admin: 10/27/17 07:40 Dose: 1 amp Albuterol Sulfate (Ventolin 0.083% Nebulizer Soln -) 1 amp NEB Q4H PRN PRN Reason: SHORT OF BREATH/WHEEZING Sodium Chloride (Normal Saline -) 1,000 mls @ 100 mls/hr IV ASDIR [facility] Last Admin: 10/26/17 16:35 Dose: 100 mls/hr Levothyroxine Sodium (Synthroid -) 25 mcg PO DAILY@0700 [facility] Last Admin: 10/27/17 06:31 Dose: 25 mcg Methylprednisolone Sodium Succinate (Solu-Medrol -) 40 mg IVPUSH Q8H-IV [facility] Last Admin: 10/27/17 11:10 Dose: 40 mg Metoprolol Succinate (Toprol Xl -) 25 mg PO DAILY [facility] Pantoprazole Sodium (Protonix -) 40 mg PO DAILY [facility] Last Admin: 10/27/17 11:09 Dose: 40 mg 62 year old woman with PMhx of Rectal Ca s/p resection and colostomy who was admitted s/p hypersensativity reaction during chemo infusion today with Cr of 1.6. #FABIAN likely secondary to volume depletion vs AIN vs. obstruction, unlikely tumor lysis as pt has a solid tumor or chemo induced #Rectal Ca on Chemo #Hypersensativity reaction #Metabolic acidosis from GI losses/Renal Insufficiency Renal function with slight improvement with IVF Urine studies show a low urine Na consistent with intravascular volume depletion no significant proteinuria will change IVF to 1/2 normal with bicarb check repeat BMP this evening and lactic acidosis Thank you Will follow Yomi Flores DO
[2017-10-27] MEDS ORDERED: SODIUM CHLORIDE 0.45% 1,000 ML with SODIUM BICARBONATE 8.4% - 75 MEQ IV SCH ×2 (14:15)
--- NOTE | 2017-10-27 14:20 | PN ---
Progress Note, Physician History of Present Illness: PULMONARY ALERT,NAD,-CP-,-SOB - Current Medication List Current Medications: Active Medications Albuterol Sulfate (Ventolin 0.083% Nebulizer Soln -) 1 amp NEB RTID [facility] Last Admin: 10/27/17 07:40 Dose: 1 amp Albuterol Sulfate (Ventolin 0.083% Nebulizer Soln -) 1 amp NEB Q4H PRN PRN Reason: SHORT OF BREATH/WHEEZING Sodium Bicarbonate 75 meq/ (Sodium Chloride) 1,075 mls @ 83 mls/hr IV Q13H [facility] Levothyroxine Sodium (Synthroid -) 25 mcg PO DAILY@0700 [facility] Last Admin: 10/27/17 06:31 Dose: 25 mcg Methylprednisolone Sodium Succinate (Solu-Medrol -) 40 mg IVPUSH Q8H-IV [facility] Last Admin: 10/27/17 11:10 Dose: 40 mg Metoprolol Succinate (Toprol Xl -) 25 mg PO DAILY [facility] Pantoprazole Sodium (Protonix -) 40 mg PO DAILY [facility] Last Admin: 10/27/17 11:09 Dose: 40 mg - Objective Vital Signs: Vital Signs Temperature 97.3 F L 10/27/17 14:13 Pulse Rate 85 10/27/17 14:13 Respiratory Rate 20 10/27/17 14:13 Blood Pressure 103/60 10/27/17 14:13 O2 Sat by Pulse Oximetry (%) 98 10/26/17 22:21 Constitutional: Yes: Well Nourished, Calm Eyes: Yes: WNL HENT: Yes: WNL Neck: Yes: WNL Cardiovascular: Yes: Regular Rate and Rhythm, S1, S2 Respiratory: Yes: CTA Bilaterally Gastrointestinal: Yes: Normal Bowel Sounds, Soft Extremities: Yes: WNL Edema: No Labs: CBC, BMP 10/27/17 06:00 10/27/17 06:00 Assessment/Plan Problem List - Problems (1) Rectal cancer Code(s): C20 - MALIGNANT NEOPLASM OF RECTUM (2) Shortness of breath Code(s): R06.02 - SHORTNESS OF BREATH (3) Acute bronchospasm Code(s): J98.01 - ACUTE BRONCHOSPASM (4) Obesity Code(s): E66.9 - OBESITY, UNSPECIFIED (5) Renal insufficiency Code(s): N28.9 - DISORDER OF KIDNEY AND URETER, UNSPECIFIED Assessment/Plan O2 prn D/C Medrol am BD TX replete lytes IVF DR STRANGE
--- NOTE | 2017-10-27 14:29 | EKG ---
Test Reason : Blood Pressure : / mmHG Vent. Rate : 082 BPM Atrial Rate : 082 BPM P-R Int : 208 ms QRS Dur : 098 ms QT Int : 398 ms P-R-T Axes : 029 -27 019 degrees QTc Int : 464 ms NORMAL SINUS RHYTHM INCOMPLETE RIGHT BUNDLE BRANCH BLOCK BORDERLINE ECG WHEN COMPARED WITH ECG OF 26-OCT-2017 14:19, NONSPECIFIC T WAVE ABNORMALITY NOW EVIDENT IN INFERIOR LEADS Confirmed by BROOKS DALE, JASSON ([id number]) on 10/27/2017 2:29:08 PM Referred By: [facility] Confirmed By:JASSON GUY MD
[2017-10-27 19:42] LABS: ANION GAP 11 (8-16); BLOOD UREA NITROGEN 19 mg/dL (7-18); CALCIUM 7.5 mg/dL (8.5-10.1); CHLORIDE 113 mmol/L (98-107); CO2 15 mmol/L (21-32); CREATININE 1.4 mg/dL (0.55-1.02); GLUCOSE,RANDOM 168 mg/dL (74-106); SODIUM 139 mmol/L (136-145)
[2017-10-27] MEDS: SODIUM CHLORIDE 0.45% 1,000 ML with SODIUM BICARBONATE 8.4% - 75 MEQ IV SCH (21:36)
[2017-10-28] MEDS: SODIUM CHLORIDE 0.45% 1,000 ML with SODIUM BICARBONATE 8.4% - 75 MEQ IV SCH ×2 (04:24→10:09)
[2017-10-28] MEDS: LEVOTHYROXINE NA 25 MCG TABLET (FP) PO SCH (06:12)
[2017-10-28] MEDS: ALBUTEROL SO4 0.083% IH SOL 2.5 MG/3 ML VIAL.NEB. NEB SCH ×3 (07:30→20:11)
[2017-10-28 08:01] LABS: HEMATOCRIT 27.7 % (32.4-45.2); HEMOGLOBIN 9.7 GM/dL (10.7-15.3); MEAN CELL VOLUME 85.6 fl (80-96); MEAN PLT VOLUME 8.1 fl (7.5-11.1); PLATELET COUNT 131 K/MM3 (134-434); RBC 3.24 M/mm3 (3.60-5.2); RDW 17.8 % (11.6-15.6); WHITE BLOOD COUNT 18.7 K/mm3 (4.0-10.0)
[2017-10-28 08:49] LABS: CHLORIDE 111 mmol/L (98-107); POTASSIUM 3.4 mmol/L (3.5-5.1); SODIUM 139 mmol/L (136-145)
[2017-10-28 09:17] LABS: ALBUMIN 2.6 g/dl (3.4-5.0); ALK PHOS 82 U/L (45-117); ANION GAP 10 (8-16); BILIRUBIN,TOTAL 0.2 mg/dL (0.2-1.0); BLOOD UREA NITROGEN 19 mg/dL (7-18); CALCIUM 7.1 mg/dL (8.5-10.1); CO2 18 mmol/L (21-32); CREATININE 1.3 mg/dL (0.55-1.02); GLUCOSE,RANDOM 109 mg/dL (74-106); MAGNESIUM 1.6 mg/dL (1.8-2.4); SGOT/AST 25 U/L (15-37); SGPT/ALT 37 U/L (12-78); TOT PROT 5.1 g/dl (6.4-8.2); URIC ACID 4.9 mg/dL (2.6-7.2)
--- NOTE | 2017-10-28 09:53 | PN ---
Progress Note (short form) - Note Progress Note: PULMONARY Denies shortness of breath, cough or wheezing. States breathing is at baseline. Last Vital Signs Temp Pulse Resp BP Pulse Ox 97.9 F 88 20 117/65 97 10/28/17 09:34 10/28/17 09:34 10/28/17 09:34 10/28/17 09:34 10/27/17 21:00 Gen: NAD at rest Heart: RRR Lung: decreased breath sounds at the bases, no wheezes Abd: soft, nontender Ext: no edema CBC, BMP 10/28/17 06:00 10/28/17 06:00 Active Medications Albuterol Sulfate (Ventolin 0.083% Nebulizer Soln -) 1 amp NEB RTID [facility] Last Admin: 10/28/17 07:30 Dose: 1 amp Albuterol Sulfate (Ventolin 0.083% Nebulizer Soln -) 1 amp NEB Q4H PRN PRN Reason: SHORT OF BREATH/WHEEZING Sodium Bicarbonate 75 meq/ (Sodium Chloride) 1,075 mls @ 100 mls/hr IV Q13H [facility] Last Admin: 10/28/17 04:24 Dose: 100 mls/hr Levothyroxine Sodium (Synthroid -) 25 mcg PO DAILY@0700 [facility] Last Admin: 10/28/17 06:12 Dose: 25 mcg Methylprednisolone Sodium Succinate (Solu-Medrol -) 40 mg IVPUSH BID [facility] Metoprolol Succinate (Toprol Xl -) 25 mg PO DAILY [facility] Pantoprazole Sodium (Protonix -) 40 mg PO DAILY [facility] Last Admin: 10/27/17 11:09 Dose: 40 mg A/P Acute Bronchospasm from chemo Rectal Ca Acute Kidney Injury Prolonged QTc Hypothyroidism - can d/c medrol - inhaled bronchodilators as needed - replete lytes - monitor urine output, creatinine - DVT prophylaxis
[2017-10-28] MEDS ORDERED: methylPREDNISolone NA SUCC 40 MG/1 ML VIAL IVPUSH SCH (10:00)
[2017-10-28 10:07] LABS: ANISOCYTOSIS 1+; PLATELET ESTIMATE DECREASED
[2017-10-28] MEDS: PANTOPRAZOLE 40 MG TABLET (FP) PO SCH (10:09)
[2017-10-28] MEDS: metoPROLOL SUCCINATE 25 MG TAB.SR.24H (FP) PO SCH (10:09)
--- NOTE | 2017-10-28 10:24 | PN ---
Progress Note, Physician History of Present Illness: She denies CP or SOB, near or true syncope, palpitations, orthopnea, PND or LE edema. - Current Medication List Current Medications: Active Medications Albuterol Sulfate (Ventolin 0.083% Nebulizer Soln -) 1 amp NEB RTID [facility] Last Admin: 10/28/17 07:30 Dose: 1 amp Albuterol Sulfate (Ventolin 0.083% Nebulizer Soln -) 1 amp NEB Q4H PRN PRN Reason: SHORT OF BREATH/WHEEZING Sodium Bicarbonate 75 meq/ (Sodium Chloride) 1,075 mls @ 100 mls/hr IV Q13H [facility] Last Admin: 10/28/17 10:09 Dose: Not Given Levothyroxine Sodium (Synthroid -) 25 mcg PO DAILY@0700 [facility] Last Admin: 10/28/17 06:12 Dose: 25 mcg Metoprolol Succinate (Toprol Xl -) 25 mg PO DAILY [facility] Last Admin: 10/28/17 10:09 Dose: 25 mg Pantoprazole Sodium (Protonix -) 40 mg PO DAILY [facility] Last Admin: 10/28/17 10:09 Dose: 40 mg - Objective Vital Signs: Vital Signs Temperature 97.9 F 10/28/17 09:34 Pulse Rate 88 10/28/17 09:34 Respiratory Rate 20 10/28/17 09:34 Blood Pressure 117/65 10/28/17 09:34 O2 Sat by Pulse Oximetry (%) 97 10/27/17 21:00 Constitutional: Yes: No Distress, Calm Neck: Yes: Supple Cardiovascular: Yes: Regular Rate and Rhythm Respiratory: Yes: Regular, Diminished Gastrointestinal: Yes: Normal Bowel Sounds, Soft Edema: No Labs: CBC, BMP 10/28/17 06:00 10/28/17 06:00 - ....Imaging EKG: Report Reviewed (NSR @ 82 1st deg AVB QTc 464 msec) Problem List - Problems (1) Prolonged QT interval Code(s): R94.31 - ABNORMAL ELECTROCARDIOGRAM [ECG] [EKG] (2) Acute bronchospasm Code(s): J98.01 - ACUTE BRONCHOSPASM (3) Rectal cancer Code(s): C20 - MALIGNANT NEOPLASM OF RECTUM (4) Renal insufficiency Code(s): N28.9 - DISORDER OF KIDNEY AND URETER, UNSPECIFIED (5) Hypothyroidism Code(s): E03.9 - HYPOTHYROIDISM, UNSPECIFIED Qualifiers: Hypothyroidism type: unspecified Qualified Code(s): E03.9 - Hypothyroidism , unspecified (6) Hypersensitivity reaction Code(s): T78.40XA - ALLERGY, UNSPECIFIED, INITIAL ENCOUNTER Qualifiers: Encounter type: subsequent encounter Qualified Code(s): T78.40XD - Allergy , unspecified, subsequent encounter Assessment/Plan 1. Rectal Ca on Adjuvant FOLFOX 2. S/p Acute Bronchospasm from [place] based chemo. now resolved 3. FABIAN likely secondary to volume depletion vs AIN vs. obstruction improving 4. Prolonged QTc improved 5. Hypothyroidism P:1. Keep K>4.0, Mg>2.0, replete Mg and K, avoid QT-prolonging agents 2. BD, steroids d/catie, O2 as needed 3. Renal eval in progress, IV hydration with monitor renal function and electrolytes 4. Continue Toprol XL 25 qd as hemodynamic tolerate 5. D/c planning
[2017-10-28] MEDS ORDERED: MAGNESIUM OXIDE 400 MG TABLET (FP) PO ONE (10:29)
[2017-10-28] MEDS ORDERED: POTASSIUM CHLORIDE TABS 20 MEQ TABLET.ER (FP) PO ONE (10:29)
--- NOTE | 2017-10-28 15:49 | PN ---
Progress Note (short form) - Note Progress Note: Renal follow up for FABIAN Pt seen and examined at the bedside awake and alert reports frequent loose output from ostomy today no sob, chest pain, abd pain on IVF with bicarb making urine no fever, chills Vital Signs Temperature 97.9 F 10/28/17 14:30 Pulse Rate 85 10/28/17 14:30 Respiratory Rate 20 10/28/17 14:30 Blood Pressure 117/63 10/28/17 14:30 O2 Sat by Pulse Oximetry (%) 97 10/28/17 09:00 Intake & Output 10/25/17 10/26/17 10/27/17 10/28/17 23:59 23:59 23:59 23:59 Intake Total 50 3456 6090 Output Total 500 Balance 50 2956 6090 Weight 68.946 kg 68.946 kg NAD, awake and alert RRR, No M/R CTA soft NT/ND + ostomy No LE edema CBC, BMP 10/28/17 06:00 10/28/17 06:00 Current Medications Albuterol Sulfate (Ventolin 0.083% Nebulizer Soln -) 1 amp NEB RTID [facility] Last Admin: 10/28/17 13:56 Dose: 1 amp Albuterol Sulfate (Ventolin 0.083% Nebulizer Soln -) 1 amp NEB Q4H PRN PRN Reason: SHORT OF BREATH/WHEEZING Sodium Bicarbonate 75 meq/ (Sodium Chloride) 1,075 mls @ 100 mls/hr IV Q13H [facility] Last Admin: 10/28/17 10:09 Dose: Not Given Levothyroxine Sodium (Synthroid -) 25 mcg PO DAILY@0700 [facility] Last Admin: 10/28/17 06:12 Dose: 25 mcg Metoprolol Succinate (Toprol Xl -) 25 mg PO DAILY [facility] Last Admin: 10/28/17 10:09 Dose: 25 mg Pantoprazole Sodium (Protonix -) 40 mg PO DAILY [facility] Last Admin: 10/28/17 10:09 Dose: 40 mg 62 year old woman with PMhx of Rectal Ca s/p resection and colostomy who was admitted s/p hypersensativity reaction during chemo infusion today with Cr of 1.6. #FABIAN likely secondary to volume depletion vs AIN vs. obstruction, unlikely tumor lysis as pt has a solid tumor or chemo induced #Rectal Ca on Chemo #Hypersensativity reaction #Metabolic acidosis from GI losses/Renal Insufficiency/Lactic acidosis Renal function stable at this time Urine studies show a low urine Na and urine Eos pending Will check US of the kidney to access kidney size and texture and may show some signs of CKD pt with non-anion gap acidosis (GI losses) with small component of gap acidosis with elevated lactic acid continue IVF with biacrb, start oral bicarb 650mg BID no overt hypotension to be cause of LA, possibly related to Albuterol Trend serum bicarb and LA levels Thank you Will follow Yomi Flores DO
[2017-10-28] MEDS ORDERED: SODIUM CHLORIDE 0.45% 1,000 ML with SODIUM BICARBONATE 8.4% - 75 MEQ IV SCH (15:50)
--- NOTE | 2017-10-28 16:55 | PN ---
Progress Note (short form) - Note Progress Note: seen and examined today she feels tired. +increased ostomy output all the consult notes reviewed/appreciated O/E: NO acute distress NCAT cor:RRR abd: Colostomy No CCE Last Vital Signs Temp Pulse Resp BP Pulse Ox 97.9 F 75 20 95/57 98 10/27/17 06:13 10/27/17 06:13 10/27/17 06:13 10/27/17 06:13 10/26/17 22:21 CBC, BMP 10/27/17 06:00 Current Medications Generic Name Dose Route Start Last Admin Trade Name Freq PRN Reason Stop Dose Admin Albuterol Sulfate 1 amp 10/26/17 20:00 10/27/17 07:40 Ventolin 0.083% Nebulizer Soln - NEB 1 amp RTID KENNY Administration Albuterol Sulfate 1 amp 10/26/17 15:02 Ventolin 0.083% Nebulizer Soln - NEB Q4H PRN SHORT OF BREATH/WHEEZING Sodium Chloride 1,000 mls @ 100 mls/hr 10/26/17 15:11 10/26/17 16:35 Normal Saline - IV 100 mls/hr ASDIR KENNY Administration Levothyroxine Sodium 25 mcg 10/27/17 07:00 10/27/17 06:31 Synthroid - PO 25 mcg DAILY@0700 KENNY Administration Methylprednisolone Sodium Succinate 40 mg 10/26/17 18:00 10/27/17 02:17 Solu-Medrol - IVPUSH 40 mg Q8H-IV KENNY Administration Metoprolol Succinate 50 mg 10/26/17 19:00 10/26/17 21:29 Toprol Xl - PO Not Given DAILY KENNY Pantoprazole Sodium 40 mg 10/27/17 10:00 Protonix - PO DAILY KENNY Rectal Ca on Adjuvant FOLFOX S/p Severe HSN reaction to [place] based chemo. now resolved FABIAN prolonged QTc' diarrhea Lactic acidosis HypoMag Monitor CBC Monitor Cr pulm f/u, stopped steroids renal meng on going c diff negative will give lomotil repleting lytes. nutrition consult done anticipate dc pending clinical improvement tomorrow
[2017-10-28] MEDS: DIPHENOXYLATE 2.5/ATROPINE.025 1 COMBO TABLET PO PRN (16:58)
[2017-10-28] MEDS: SODIUM BICARBONATE 650 MG TABLET PO SCH ×2 (16:58→22:02)
[2017-10-28] MEDS ORDERED: MAGNESIUM 2GM/50ML STERILE WATER IVPB IVPB ONE (17:00)
[2017-10-28] MEDS: SODIUM BICARBONATE 8.4% - 75 MEQ in SODIUM CHLORIDE 0.45% 1,000 ML IV SCH (18:24)
[2017-10-29] MEDS: DIPHENOXYLATE 2.5/ATROPINE.025 1 COMBO TABLET PO PRN ×2 (01:52→16:31)
[2017-10-29] MEDS: LEVOTHYROXINE NA 25 MCG TABLET (FP) PO SCH (06:20)
[2017-10-29 07:06] LABS: HEMATOCRIT 26.7 % (32.4-45.2); HEMOGLOBIN 9.5 GM/dL (10.7-15.3); MCH 30.4 pg (25.7-33.7); MCHC 35.5 g/dl (32.0-36.0); MEAN CELL VOLUME 85.7 fl (80-96); MEAN PLT VOLUME 8.2 fl (7.5-11.1); PLATELET COUNT 119 K/MM3 (134-434); RBC 3.11 M/mm3 (3.60-5.2); RDW 17.3 % (11.6-15.6)
[2017-10-29 07:17] LABS: ALBUMIN 2.3 g/dl (3.4-5.0); ANION GAP 9 (8-16); BLOOD UREA NITROGEN 11 mg/dL (7-18); CHLORIDE 112 mmol/L (98-107); CO2 23 mmol/L (21-32); GLUCOSE,RANDOM 89 mg/dL (74-106); MAGNESIUM 2.2 mg/dL (1.8-2.4); SODIUM 144 mmol/L (136-145)
[2017-10-29 07:21] LABS: ALK PHOS 68 U/L (45-117); BILIRUBIN,TOTAL 0.3 mg/dL (0.2-1.0); CREATININE 1.1 mg/dL (0.55-1.02); SGOT/AST 28 U/L (15-37); SGPT/ALT 36 U/L (12-78); TOT PROT 4.4 g/dl (6.4-8.2)
[2017-10-29] MEDS: ALBUTEROL SO4 0.083% IH SOL 2.5 MG/3 ML VIAL.NEB. NEB SCH ×3 (07:24→20:30)
[2017-10-29 07:49] LABS: POTASSIUM 2.9 mmol/L (3.5-5.1)
[2017-10-29] MEDS ORDERED: POTASSIUM CHLORIDE 20 MEQ PREMIX IVPB 100 ML IVPB SCH (09:15)
[2017-10-29] MEDS: SODIUM BICARBONATE 8.4% - 75 MEQ in SODIUM CHLORIDE 0.45% 1,000 ML IV SCH (09:48)
[2017-10-29] MEDS: metoPROLOL SUCCINATE 25 MG TAB.SR.24H (FP) PO SCH (09:50)
[2017-10-29] MEDS: SODIUM BICARBONATE 650 MG TABLET PO SCH ×2 (09:50→21:17)
[2017-10-29] MEDS: PANTOPRAZOLE 40 MG TABLET (FP) PO SCH (09:50)
[2017-10-29] MEDS ORDERED: TBO-FILGRASTIM 300 MCG/0.5 ML DISP.SYRINGE SQ ONE (10:30)
[2017-10-29] MEDS ORDERED: POTASSIUM CHLORIDE ORAL LIQUID 20 MEQ/15 ML PO ONE (10:30)
[2017-10-29] MEDS ORDERED: KCL 10 MEQ IVPB 10 MEQ/100 ML INFUS.BAG IVPB SCH (10:30)
[2017-10-29 10:52] LABS: PLATELET ESTIMATE DECREASED
[2017-10-29] MEDS: POTASSIUM CHLORIDE 20 MEQ in SODIUM CHLORIDE 250 ML IVPB SCH ×2 (11:51→14:10)
--- NOTE | 2017-10-29 12:51 | PN ---
Progress Note, Physician History of Present Illness: She denies CP or SOB, near or true syncope, palpitations, orthopnea, PND or LE edema. Increased ostomy output. - Current Medication List Current Medications: Active Medications Albuterol Sulfate (Ventolin 0.083% Nebulizer Soln -) 1 amp NEB RTID [facility] Last Admin: 10/29/17 07:24 Dose: 1 amp Albuterol Sulfate (Ventolin 0.083% Nebulizer Soln -) 1 amp NEB Q4H PRN PRN Reason: SHORT OF BREATH/WHEEZING Diphenoxylate HCl/Atropine (Lomotil -) 1 combo PO Q8H PRN PRN Reason: DIARRHEA Last Admin: 10/29/17 01:52 Dose: 1 combo Sodium Bicarbonate 75 meq/ (Sodium Chloride) 1,075 mls @ 75 mls/hr IV Q13H [facility] Last Admin: 10/29/17 09:48 Dose: 75 mls/hr Potassium Chloride 20 meq/ (Sodium Chloride) 260 mls @ 130 mls/hr IVPB Q2H [facility] Stop: 10/29/17 13:29 Last Admin: 10/29/17 11:51 Dose: 130 mls/hr Levothyroxine Sodium (Synthroid -) 25 mcg PO DAILY@0700 [facility] Last Admin: 10/29/17 06:20 Dose: 25 mcg Metoprolol Succinate (Toprol Xl -) 25 mg PO DAILY [facility] Last Admin: 10/29/17 09:50 Dose: 25 mg Pantoprazole Sodium (Protonix -) 40 mg PO DAILY [facility] Last Admin: 10/29/17 09:50 Dose: 40 mg Sodium Bicarbonate (Sodium Bicarbonate -) 650 mg PO BID [facility] Last Admin: 10/29/17 09:50 Dose: 650 mg - Objective Vital Signs: Vital Signs Temperature 97.7 F 10/29/17 05:55 Pulse Rate 73 10/29/17 05:55 Respiratory Rate 18 10/29/17 05:55 Blood Pressure 105/66 10/29/17 05:55 O2 Sat by Pulse Oximetry (%) 99 10/28/17 20:36 Constitutional: Yes: No Distress, Calm Neck: Yes: Supple Cardiovascular: Yes: Regular Rate and Rhythm Respiratory: Yes: Regular, CTA Bilaterally Gastrointestinal: Yes: Normal Bowel Sounds, Soft Edema: No Labs: CBC, BMP 10/29/17 05:50 10/29/17 05:50 - ....Imaging Ultrasound: Report Reviewed (Mild medical renal disease and hepatic steatosis) Problem List - Problems (1) Prolonged QT interval Code(s): R94.31 - ABNORMAL ELECTROCARDIOGRAM [ECG] [EKG] (2) Acute bronchospasm Code(s): J98.01 - ACUTE BRONCHOSPASM (3) Rectal cancer Code(s): C20 - MALIGNANT NEOPLASM OF RECTUM (4) Renal insufficiency Code(s): N28.9 - DISORDER OF KIDNEY AND URETER, UNSPECIFIED (5) Hypothyroidism Code(s): E03.9 - HYPOTHYROIDISM, UNSPECIFIED Qualifiers: Hypothyroidism type: unspecified Qualified Code(s): E03.9 - Hypothyroidism , unspecified (6) Hypersensitivity reaction Code(s): T78.40XA - ALLERGY, UNSPECIFIED, INITIAL ENCOUNTER Qualifiers: Encounter type: subsequent encounter Qualified Code(s): T78.40XD - Allergy , unspecified, subsequent encounter (7) Hypokalemia Code(s): E87.6 - HYPOKALEMIA Assessment/Plan 1. Rectal Ca on Adjuvant FOLFOX 2. S/p Acute Bronchospasm from [place] based chemo. now resolved 3. FABIAN likely secondary to volume depletion vs AIN vs. obstruction improving 4. Prolonged QTc improved 5. Hypothyroidism P:1. Keep K>4.0, Mg>2.0, replete Mg and K, avoid QT-prolonging agents 2. BD, steroids d/catie, lomotil as needed 3. Renal eval in progress, IV hydration with monitor renal function and electrolytes 4. Continue Toprol XL 25 qd as hemodynamic tolerate 5. D/c planning
--- NOTE | 2017-10-29 13:05 | PN ---
Progress Note (short form) - Note Progress Note: Renal follow up for FABIAN Pt seen and examined at the bedside ostomy output has decreased no sob, chest pain, abd pain making urine on IVF Vital Signs Temperature 97.7 F 10/29/17 05:55 Pulse Rate 73 10/29/17 05:55 Respiratory Rate 18 10/29/17 05:55 Blood Pressure 105/66 10/29/17 05:55 O2 Sat by Pulse Oximetry (%) 99 10/28/17 20:36 Intake & Output 10/26/17 10/27/17 10/28/17 10/29/17 23:59 23:59 23:59 23:59 Intake Total 50 3456 6190 Output Total 500 500 Balance 50 2956 5690 Weight 68.946 kg 68.946 kg NAD, awake and alert RRR, No M/R CTA soft NT/ND + ostomy No LE edema CBC, BMP 10/29/17 05:50 10/29/17 05:50 Laboratory Tests 10/29/17 10/29/17 05:50 05:50 Lactic Acid 2.1 H Calcium 7.0 L Magnesium 2.2 Albumin 2.3 L Current Medications Albuterol Sulfate (Ventolin 0.083% Nebulizer Soln -) 1 amp NEB RTID [facility] Last Admin: 10/29/17 07:24 Dose: 1 amp Albuterol Sulfate (Ventolin 0.083% Nebulizer Soln -) 1 amp NEB Q4H PRN PRN Reason: SHORT OF BREATH/WHEEZING Diphenoxylate HCl/Atropine (Lomotil -) 1 combo PO Q8H PRN PRN Reason: DIARRHEA Last Admin: 10/29/17 01:52 Dose: 1 combo Sodium Bicarbonate 75 meq/ (Sodium Chloride) 1,075 mls @ 75 mls/hr IV Q13H [facility] Last Admin: 10/29/17 09:48 Dose: 75 mls/hr Potassium Chloride 20 meq/ (Sodium Chloride) 260 mls @ 130 mls/hr IVPB Q2H [facility] Stop: 10/29/17 13:29 Last Admin: 10/29/17 11:51 Dose: 130 mls/hr Levothyroxine Sodium (Synthroid -) 25 mcg PO DAILY@0700 [facility] Last Admin: 10/29/17 06:20 Dose: 25 mcg Metoprolol Succinate (Toprol Xl -) 25 mg PO DAILY [facility] Last Admin: 10/29/17 09:50 Dose: 25 mg Pantoprazole Sodium (Protonix -) 40 mg PO DAILY [facility] Last Admin: 10/29/17 09:50 Dose: 40 mg Sodium Bicarbonate (Sodium Bicarbonate -) 650 mg PO BID [facility] Last Admin: 10/29/17 09:50 Dose: 650 mg 62 year old woman with PMhx of Rectal Ca s/p resection and colostomy who was admitted s/p hypersensativity reaction during chemo infusion today with Cr of 1.6. #FABIAN likely secondary to volume depletion vs AIN vs. obstruction, unlikely tumor lysis as pt has a solid tumor or chemo induced #Rectal Ca on Chemo #Hypersensativity reaction #Metabolic acidosis from GI losses/Renal Insufficiency/Lactic acidosis Renal function improved, good urine output Urine Eos negative (less likely AIN) Metabolic acidosis is improved, will D/C IV bicarb and continue oral bicarb Supplement IV KCL, repeat K in am K was normal on admission so hypokalemia likely caused by bicarbonate causing intra-cellular shift of K and thus will not need chronic KCl supplementation trend BMP, Kg, Mg daily Thank you Will follow Yomi Flores DO
--- NOTE | 2017-10-29 23:21 | PN ---
Progress Note (short form) - Note Progress Note: Patient seen and examined Feels better still with significant ostomy output Last Vital Signs Temp Pulse Resp BP Pulse Ox 97.9 F 98 H 18 122/78 98 10/30/17 06:00 10/30/17 06:00 10/30/17 06:00 10/30/17 06:00 10/29/17 21:00 Cor: RSR, No murmurs, No gallops Lungs: Clear to P&A Abd: Soft, Normal bowel sounds, No organomegaly Ext:No significant edema Abnormal Lab Results 10/29/17 10/30/17 05:50 06:00 Myelocytes % (Man) 3 H D Nucleated RBC % 1 H Potassium 3.2 L BUN 4 L Random Glucose 68 L Calcium 7.4 L Magnesium 1.7 L Active Medications Generic Name Dose Route Start Last Admin Trade Name Freq PRN Reason Stop Dose Admin Albuterol Sulfate 1 amp 10/26/17 20:00 10/29/17 20:30 Ventolin 0.083% Nebulizer Soln - NEB 1 amp RTID KENNY Administration Albuterol Sulfate 1 amp 10/26/17 15:02 Ventolin 0.083% Nebulizer Soln - NEB Q4H PRN SHORT OF BREATH/WHEEZING Diphenoxylate HCl/Atropine 1 combo 10/28/17 16:49 10/30/17 04:13 Lomotil - PO 1 combo Q8H PRN Administration DIARRHEA Levothyroxine Sodium 25 mcg 10/27/17 07:00 10/30/17 06:29 Synthroid - PO 25 mcg DAILY@0700 KENNY Administration Metoprolol Succinate 25 mg 10/27/17 11:50 10/29/17 09:50 Toprol Xl - PO 25 mg DAILY KENNY Administration Pantoprazole Sodium 40 mg 10/27/17 10:00 10/29/17 09:50 Protonix - PO 40 mg DAILY KENNY Administration Sodium Bicarbonate 650 mg 10/28/17 16:00 10/29/17 21:17 Sodium Bicarbonate - PO 650 mg BID KENNY Administration A/P Rectal Ca on Adjuvant FOLFOX S/p Severe HSN reaction--bronchospasm-- to [place] based chemo. now resolved FABIAN prolonged QTc' diarrhea Lactic acidosis HypoMag Hypokalemia Monitor CBC--prophylactic granix Monitor Cr c diff negative will give lomotil repleting lytes. probable discharge wednesday if lytes stable, renal function improves, lactic acid resolves will need allergy f/u outpatient
[2017-10-30] MEDS: DIPHENOXYLATE 2.5/ATROPINE.025 1 COMBO TABLET PO PRN (04:13)
[2017-10-30] MEDS: LEVOTHYROXINE NA 25 MCG TABLET (FP) PO SCH (06:29)
[2017-10-30] MEDS: ALBUTEROL SO4 0.083% IH SOL 2.5 MG/3 ML VIAL.NEB. NEB SCH ×4 (07:30→20:45)
[2017-10-30 08:19] LABS: ANION GAP 10 (8-16); BLOOD UREA NITROGEN 4 mg/dL (7-18); CALCIUM 7.4 mg/dL (8.5-10.1); CHLORIDE 105 mmol/L (98-107); CO2 28 mmol/L (21-32); CREATININE 0.9 mg/dL (0.55-1.02); GLUCOSE,RANDOM 68 mg/dL (74-106); MAGNESIUM 1.7 mg/dL (1.8-2.4); PHOSPHOROUS 2.5 mg/dL (2.5-4.9); POTASSIUM 3.2 mmol/L (3.5-5.1); SODIUM 143 mmol/L (136-145)
--- NOTE | 2017-10-30 11:28 | PN ---
Progress Note (short form) - Note Progress Note: Lying flat in bed. Breathing feels fine. No CP, SOB, or cough. Feels weak. Intake & Output 10/27/17 10/28/17 10/29/17 10/30/17 23:59 23:59 23:59 23:59 Intake Total 3456 6190 2300 375 Output Total 500 500 Balance 2956 5690 2300 375 Weight 152 lb Last Vital Signs Temp Pulse Resp BP Pulse Ox 97.9 F 98 H 18 122/78 98 10/30/17 06:00 10/30/17 06:00 10/30/17 06:00 10/30/17 06:00 10/29/17 21:00 Active Medications Albuterol Sulfate (Ventolin 0.083% Nebulizer Soln -) 1 amp NEB RTID [facility] Last Admin: 10/29/17 20:30 Dose: 1 amp Albuterol Sulfate (Ventolin 0.083% Nebulizer Soln -) 1 amp NEB Q4H PRN PRN Reason: SHORT OF BREATH/WHEEZING Levothyroxine Sodium (Synthroid -) 25 mcg PO DAILY@0700 [facility] Last Admin: 10/30/17 06:29 Dose: 25 mcg Loperamide HCl (Imodium -) 2 mg PO Q8H PRN PRN Reason: DIARRHEA Metoprolol Succinate (Toprol Xl -) 25 mg PO DAILY [facility] Last Admin: 10/29/17 09:50 Dose: 25 mg Pantoprazole Sodium (Protonix -) 40 mg PO DAILY [facility] Last Admin: 10/29/17 09:50 Dose: 40 mg Sodium Bicarbonate (Sodium Bicarbonate -) 650 mg PO BID [facility] Last Admin: 10/29/17 21:17 Dose: 650 mg Gen: NAD at rest Heart: RRR Lung: decreased breath sounds at the bases, no wheezes Abd: soft, nontender Ext: no edema Laboratory Results - last 24 hr 10/30/17 06:00 Sodium 143 Potassium 3.2 L Chloride 105 Carbon Dioxide 28 Anion Gap 10 BUN 4 L Creatinine 0.9 Random Glucose 68 L Calcium 7.4 L Phosphorus 2.5 Magnesium 1.7 L A/P Acute Bronchospasm from chemo Rectal Ca Acute Kidney Injury Prolonged QTc Hypothyroidism - Monitor off systemic steroids - inhaled bronchodilators as needed - replete lytes - monitor urine output, creatinine - DVT prophylaxis Dr Clifton Problem List - Problems (1) Rectal cancer Code(s): C20 - MALIGNANT NEOPLASM OF RECTUM (2) Shortness of breath Code(s): R06.02 - SHORTNESS OF BREATH (3) Acute bronchospasm Code(s): J98.01 - ACUTE BRONCHOSPASM (4) Obesity Code(s): E66.9 - OBESITY, UNSPECIFIED (5) Renal insufficiency Code(s): N28.9 - DISORDER OF KIDNEY AND URETER, UNSPECIFIED
[2017-10-30] MEDS ORDERED: POTASSIUM CHLORIDE ORAL LIQUID 20 MEQ/15 ML PO ONE (11:53)
[2017-10-30] MEDS: PANTOPRAZOLE 40 MG TABLET (FP) PO SCH ×2 (12:04→17:10)
[2017-10-30] MEDS: SODIUM BICARBONATE 650 MG TABLET PO SCH ×3 (12:04→21:14)
[2017-10-30] MEDS: metoPROLOL SUCCINATE 25 MG TAB.SR.24H (FP) PO SCH ×2 (12:04→17:09)
--- NOTE | 2017-10-30 12:31 | PN ---
Progress Note (short form) - Note Progress Note: Patient seen and examined Feels better still with significant ostomy output Vital Signs Period Temp Pulse Resp BP Sys/[place] Pulse Ox Last 24 Hr 97.6 F-98.3 F 72-98 18-20 112-127/61-78 98-98 Cor: RSR, No murmurs, No gallops Lungs: Clear to P&A Abd: Soft, Normal bowel sounds, No organomegaly Ext:No significant edema CBC, BMP 10/29/17 05:50 10/30/17 06:00 Active Medications Generic Name Dose Route Start Last Admin Trade Name Freq PRN Reason Stop Dose Admin Albuterol Sulfate 1 amp 10/26/17 20:00 10/30/17 10:25 Ventolin 0.083% Nebulizer Soln - NEB 1 amp RTID KENNY Administration Albuterol Sulfate 1 amp 10/26/17 15:02 Ventolin 0.083% Nebulizer Soln - NEB Q4H PRN SHORT OF BREATH/WHEEZING Levothyroxine Sodium 25 mcg 10/27/17 07:00 10/30/17 06:29 Synthroid - PO 25 mcg DAILY@0700 KENNY Administration Loperamide HCl 2 mg 10/30/17 08:48 Imodium - PO Q8H PRN DIARRHEA Metoprolol Succinate 25 mg 10/27/17 11:50 10/30/17 12:04 Toprol Xl - PO 25 mg DAILY KENNY Administration Ondansetron HCl 8 mg 10/30/17 12:10 Zofran Injection IVPB 11/01/17 23:59 Q8H PRN NAUSEA Pantoprazole Sodium 40 mg 10/27/17 10:00 10/30/17 12:04 Protonix - PO 40 mg DAILY KENNY Administration Sodium Bicarbonate 650 mg 10/28/17 16:00 10/30/17 12:10 Sodium Bicarbonate - PO Not Given BID KENNY A/P Rectal Ca on Adjuvant FOLFOX S/p Severe HSN reaction--bronchospasm-- to [place] based chemo. now resolved FABIAN prolonged QTc' diarrhea Lactic acidosis HypoMag Hypokalemia Monitor CBC--prophylactic granix Monitor Cr c diff negative will give lomotil repleting lytes. nausea today- give zofran prn probable discharge wednesday if lytes stable, renal function improves, lactic acid resolves will need allergy f/u outpatient
[2017-10-30] MEDS: ONDANSETRON 4 MG/2 ML VIAL IVPB PRN (12:47)
--- NOTE | 2017-10-30 14:00 | PN ---
Progress Note, Physician Chief Complaint: The patient seen in her daniel. Lying in bed. feels very weak. Reports poor oral intake. No chest pain or shortness of breath. - Current Medication List Current Medications: Active Medications Albuterol Sulfate (Ventolin 0.083% Nebulizer Soln -) 1 amp NEB RTID [facility] Last Admin: 10/30/17 10:25 Dose: 1 amp Albuterol Sulfate (Ventolin 0.083% Nebulizer Soln -) 1 amp NEB Q4H PRN PRN Reason: SHORT OF BREATH/WHEEZING Levothyroxine Sodium (Synthroid -) 25 mcg PO DAILY@0700 [facility] Last Admin: 10/30/17 06:29 Dose: 25 mcg Loperamide HCl (Imodium -) 2 mg PO Q8H PRN PRN Reason: DIARRHEA Metoprolol Succinate (Toprol Xl -) 25 mg PO DAILY [facility] Last Admin: 10/30/17 12:04 Dose: 25 mg Ondansetron HCl (Zofran Injection) 8 mg IVPB Q8H PRN PRN Reason: NAUSEA Stop: 11/01/17 23:59 Last Admin: 10/30/17 12:47 Dose: 8 mg Pantoprazole Sodium (Protonix -) 40 mg PO DAILY [facility] Last Admin: 10/30/17 12:04 Dose: 40 mg Sodium Bicarbonate (Sodium Bicarbonate -) 650 mg PO BID [facility] Last Admin: 10/30/17 12:10 Dose: Not Given - Objective Vital Signs: Vital Signs Temperature 97.9 F 10/30/17 06:00 Pulse Rate 98 H 10/30/17 06:00 Respiratory Rate 18 10/30/17 09:00 Blood Pressure 122/78 10/30/17 06:00 O2 Sat by Pulse Oximetry (%) 98 10/30/17 09:00 Constitutional: Yes: Anxious HENT: Yes: Atraumatic Neck: Yes: Trachea Midline Cardiovascular: Yes: Regular Rate and Rhythm, S1, S2 Respiratory: Yes: CTA Bilaterally, Poor Air Entry Gastrointestinal: Yes: Normal Bowel Sounds, Soft Genitourinary: No: CVA Tenderness - Left, CVA Tenderness - Right Edema: No Labs: CBC, BMP 10/29/17 05:50 10/30/17 06:00 Problem List - Problems (1) Anemia Code(s): D64.9 - ANEMIA, UNSPECIFIED (2) Hypothyroidism Code(s): E03.9 - HYPOTHYROIDISM, UNSPECIFIED Qualifiers: Hypothyroidism type: unspecified Qualified Code(s): E03.9 - Hypothyroidism , unspecified (3) Rectal cancer Code(s): C20 - MALIGNANT NEOPLASM OF RECTUM (4) Renal insufficiency Code(s): N28.9 - DISORDER OF KIDNEY AND URETER, UNSPECIFIED (5) Shortness of breath Code(s): R06.02 - SHORTNESS OF BREATH (6) Hypomagnesemia Code(s): E83.42 - HYPOMAGNESEMIA (7) Hypokalemia Code(s): E87.6 - HYPOKALEMIA Assessment/Plan 62 year old woman with PMhx of Rectal Ca s/p resection and colostomy who was admitted s/p hypersensitivity reaction during chemo infusion today with Cr of 1.6. The azotemia has improved. Noted Hypokalemia nd Hypomagnesemia. ost liely due to acute tubular dysfunction related to the ChemoRx. Will supplement KCl and Mg. ? PT before discharge. Will monitor the Renal Electrolyte profile with you. Thank you. Jade Wright MD
[2017-10-30] MEDS ORDERED: PT OWN MED DRAWER 7, Y5N ONE (17:08)
--- NOTE | 2017-10-30 17:28 | PN ---
Progress Note, Physician History of Present Illness: She denies CP or SOB, near or true syncope, palpitations, orthopnea, PND or LE edema. Increased ostomy output, episode of nausea since resolved. - Current Medication List Current Medications: Active Medications Albuterol Sulfate (Ventolin 0.083% Nebulizer Soln -) 1 amp NEB RTID [facility] Last Admin: 10/30/17 14:27 Dose: 1 amp Albuterol Sulfate (Ventolin 0.083% Nebulizer Soln -) 1 amp NEB Q4H PRN PRN Reason: SHORT OF BREATH/WHEEZING Levothyroxine Sodium (Synthroid -) 25 mcg PO DAILY@0700 [facility] Last Admin: 10/30/17 06:29 Dose: 25 mcg Loperamide HCl (Imodium -) 2 mg PO Q8H PRN PRN Reason: DIARRHEA Metoprolol Succinate (Toprol Xl -) 25 mg PO DAILY [facility] Last Admin: 10/30/17 17:09 Dose: 25 mg Ondansetron HCl (Zofran Injection) 8 mg IVPB Q8H PRN PRN Reason: NAUSEA Stop: 11/01/17 23:59 Last Admin: 10/30/17 12:47 Dose: 8 mg Pantoprazole Sodium (Protonix -) 40 mg PO DAILY [facility] Last Admin: 10/30/17 17:10 Dose: 40 mg Sodium Bicarbonate (Sodium Bicarbonate -) 650 mg PO BID [facility] Last Admin: 10/30/17 12:10 Dose: Not Given - Objective Vital Signs: Vital Signs Temperature 98 F 10/30/17 17:15 Pulse Rate 98 H 10/30/17 17:15 Respiratory Rate 18 10/30/17 17:15 Blood Pressure 118/72 10/30/17 17:15 O2 Sat by Pulse Oximetry (%) 98 10/30/17 09:00 Constitutional: Yes: No Distress, Calm Neck: Yes: Supple Cardiovascular: Yes: Regular Rate and Rhythm Respiratory: Yes: Regular, CTA Bilaterally Gastrointestinal: Yes: Normal Bowel Sounds, Soft, Abdomen, Obese Edema: No Labs: CBC, BMP 10/29/17 05:50 10/30/17 06:00 Problem List - Problems (1) Prolonged QT interval Code(s): R94.31 - ABNORMAL ELECTROCARDIOGRAM [ECG] [EKG] (2) Acute bronchospasm Code(s): J98.01 - ACUTE BRONCHOSPASM (3) Rectal cancer Code(s): C20 - MALIGNANT NEOPLASM OF RECTUM (4) Renal insufficiency Code(s): N28.9 - DISORDER OF KIDNEY AND URETER, UNSPECIFIED (5) Hypothyroidism Code(s): E03.9 - HYPOTHYROIDISM, UNSPECIFIED Qualifiers: Hypothyroidism type: unspecified Qualified Code(s): E03.9 - Hypothyroidism , unspecified (6) Hypersensitivity reaction Code(s): T78.40XA - ALLERGY, UNSPECIFIED, INITIAL ENCOUNTER Qualifiers: Encounter type: subsequent encounter Qualified Code(s): T78.40XD - Allergy , unspecified, subsequent encounter (7) Hypokalemia Code(s): E87.6 - HYPOKALEMIA Assessment/Plan 1. Rectal Ca on Adjuvant FOLFOX 2. S/p Acute Bronchospasm from [place] based chemo. now resolved 3. FABIAN likely secondary to volume depletion vs AIN vs. obstruction improving 4. Prolonged QTc improved 5. Hypothyroidism P:1. Keep K>4.0, Mg>2.0, replete Mg and K, avoid QT-prolonging agents 2. BD, steroids d/catie, lomotil as needed 3. Renal eval in progress, IV hydration with monitor renal function and electrolytes 4. Continue Toprol XL 25 qd as hemodynamic tolerate 5. D/c planning
[2017-10-30] MEDS: LOPERAMIDE HCL 2 MG CAPSULE PO PRN (21:14)
[2017-10-31] MEDS: LEVOTHYROXINE NA 25 MCG TABLET (FP) PO SCH (06:37)
[2017-10-31] MEDS: ALBUTEROL SO4 0.083% IH SOL 2.5 MG/3 ML VIAL.NEB. NEB SCH ×2 (07:36→14:33)
[2017-10-31 08:41] LABS: HEMATOCRIT 28.1 % (32.4-45.2); HEMOGLOBIN 9.8 GM/dL (10.7-15.3); MCH 30.2 pg (25.7-33.7); MCHC 34.8 g/dl (32.0-36.0); MEAN CELL VOLUME 86.8 fl (80-96); PLATELET COUNT 154 K/MM3 (134-434); RBC 3.24 M/mm3 (3.60-5.2); RDW 18.1 % (11.6-15.6); WHITE BLOOD COUNT 26.7 K/mm3 (4.0-10.0)
[2017-10-31 09:05] LABS: CHLORIDE 105 mmol/L (98-107); POTASSIUM 3.8 mmol/L (3.5-5.1); SODIUM 143 mmol/L (136-145)
[2017-10-31 09:17] LABS: ALBUMIN 2.5 g/dl (3.4-5.0); ALK PHOS 116 U/L (45-117); ANION GAP 7 (8-16); BILIRUBIN,TOTAL 0.4 mg/dL (0.2-1.0); BLOOD UREA NITROGEN 3 mg/dL (7-18); CALCIUM 7.7 mg/dL (8.5-10.1); CO2 31 mmol/L (21-32); CREATININE 1.1 mg/dL (0.55-1.02); GLUCOSE,RANDOM 80 mg/dL (74-106); MAGNESIUM 1.7 mg/dL (1.8-2.4); SGOT/AST 23 U/L (15-37); SGPT/ALT 35 U/L (12-78); TOT PROT 4.9 g/dl (6.4-8.2)
[2017-10-31 09:48] LABS: ANISOCYTOSIS 1+; PLATELET ESTIMATE DECREASED
[2017-10-31] MEDS: PANTOPRAZOLE 40 MG TABLET (FP) PO SCH (09:50)
[2017-10-31] MEDS: SODIUM BICARBONATE 650 MG TABLET PO SCH ×2 (09:50→21:03)
[2017-10-31] MEDS: metoPROLOL SUCCINATE 25 MG TAB.SR.24H (FP) PO SCH (09:50)
[2017-10-31] MEDS: LOPERAMIDE HCL 2 MG CAPSULE PO PRN ×2 (09:55→18:06)
--- NOTE | 2017-10-31 10:41 | PN ---
Progress Note (short form) - Note Progress Note: Patient seen and examined Feels better 1 episode of nausea yesterday, ate breakfast, no nausea today ostomy output decreasing and electrolytes stabilising Vital Signs Period Temp Pulse Resp BP Sys/Dupont Pulse Ox Last 24 Hr 97.9 F-98.5 F 77-98 18-20 113-147/68-81 97 Cor: RSR, No murmurs, No gallops Lungs: Clear to P&A Abd: Soft, Normal bowel sounds, No organomegaly Ext:No significant edema CBC, BMP 10/31/17 06:55 10/31/17 06:55 Active Medications Generic Name Dose Route Start Last Admin Trade Name Freq PRN Reason Stop Dose Admin Albuterol Sulfate 1 amp 10/26/17 20:00 10/31/17 07:36 Ventolin 0.083% Nebulizer Soln - NEB 1 amp RTID KENNY Administration Albuterol Sulfate 1 amp 10/26/17 15:02 Ventolin 0.083% Nebulizer Soln - NEB Q4H PRN SHORT OF BREATH/WHEEZING Levothyroxine Sodium 25 mcg 10/27/17 07:00 10/31/17 06:37 Synthroid - PO 25 mcg DAILY@0700 KENNY Administration Loperamide HCl 2 mg 10/30/17 08:48 10/31/17 09:55 Imodium - PO 2 mg Q8H PRN Administration DIARRHEA Metoprolol Succinate 25 mg 10/27/17 11:50 10/31/17 09:50 Toprol Xl - PO 25 mg DAILY [facility]NY Administration Ondansetron HCl 8 mg 10/30/17 12:10 10/30/17 12:47 Zofran Injection IVPB 11/01/17 23:59 8 mg Q8H PRN Administration NAUSEA Pantoprazole Sodium 40 mg 10/27/17 10:00 10/31/17 09:50 Protonix - PO 40 mg DAILY [facility] Administration Sodium Bicarbonate 650 mg 10/28/17 16:00 10/31/17 09:50 Sodium Bicarbonate - PO 650 mg BID KENNY Administration A/P Rectal Ca on Adjuvant FOLFOX S/p Severe HSN reaction--bronchospasm-- to [place] based chemo. now resolved FABIAN prolonged QTc' diarrhea Lactic acidosis HypoMag Hypokalemia probable discharge wednesday if lytes stable, renal function improves, lactic acid resolves will need allergy f/u outpatient
--- NOTE | 2017-10-31 11:39 | PN ---
Progress Note (short form) - Note Progress Note: Lying flat in bed. Breathing feels fine. No CP, SOB, or cough. Feels weak. Intake & Output 10/28/17 10/29/17 10/30/17 10/31/17 23:59 23:59 23:59 23:59 Intake Total 6190 2300 665 100 Output Total 500 Balance 5690 2300 665 100 Last Vital Signs Temp Pulse Resp BP Pulse Ox 97.9 F 89 20 124/76 97 10/31/17 06:14 10/31/17 06:14 10/31/17 06:14 10/31/17 06:14 10/30/17 21:00 Active Medications Albuterol Sulfate (Ventolin 0.083% Nebulizer Soln -) 1 amp NEB RTID [facility] Last Admin: 10/31/17 07:36 Dose: 1 amp Albuterol Sulfate (Ventolin 0.083% Nebulizer Soln -) 1 amp NEB Q4H PRN PRN Reason: SHORT OF BREATH/WHEEZING Levothyroxine Sodium (Synthroid -) 25 mcg PO DAILY@0700 [facility] Last Admin: 10/31/17 06:37 Dose: 25 mcg Loperamide HCl (Imodium -) 2 mg PO Q8H PRN PRN Reason: DIARRHEA Last Admin: 10/31/17 09:55 Dose: 2 mg Metoprolol Succinate (Toprol Xl -) 25 mg PO DAILY [facility] Last Admin: 10/31/17 09:50 Dose: 25 mg Ondansetron HCl (Zofran Injection) 8 mg IVPB Q8H PRN PRN Reason: NAUSEA Stop: 11/01/17 23:59 Last Admin: 10/30/17 12:47 Dose: 8 mg Pantoprazole Sodium (Protonix -) 40 mg PO DAILY [facility] Last Admin: 10/31/17 09:50 Dose: 40 mg Sodium Bicarbonate (Sodium Bicarbonate -) 650 mg PO BID [facility] Last Admin: 10/31/17 09:50 Dose: 650 mg Gen: NAD at rest Heart: RRR Lung: decreased breath sounds at the bases, no wheezes Abd: soft, nontender Ext: no edema Laboratory Results - last 24 hr 10/31/17 10/31/17 10/31/17 06:55 06:55 06:55 WBC 26.7 H D RBC 3.24 L Hgb 9.8 L Hct 28.1 L MCV 86.8 MCH 30.2 MCHC 34.8 RDW 18.1 H Plt Count 154 D MPV 8.0 Neutrophils % No Result Required. Neutrophils % (Manual) 87.9 H D Band Neutrophils % 1.9 Lymphocytes % No Result Required. Lymphocytes % (Manual) 5.6 L D Monocytes % (Manual) 1 L D Eosinophils % (Manual) 0.9 D Basophils % (Manual) 0.0 Myelocytes % (Man) 1 D Promyelocytes % (Man) 0 Blast Cells % (Manual) 0 Nucleated RBC % 0 Metamyelocytes 2 D Hypochromia 1+ Platelet Estimate Decreased Anisocytosis 1+ Microcytosis 1+ Sodium 143 Potassium 3.8 Chloride 105 Carbon Dioxide 31 Anion Gap 7 L BUN 3 L Creatinine 1.1 H Creat Clearance w eGFR 50.50 Random Glucose 80 Lactic Acid 1.8 Calcium 7.7 L Magnesium 1.7 L Total Bilirubin 0.4 D AST 23 ALT 35 Alkaline Phosphatase 116 Total Protein 4.9 L Albumin 2.5 L A/P Acute Bronchospasm from chemo Rectal Ca Acute Kidney Injury Prolonged QTc Hypothyroidism - Monitor off systemic steroids - inhaled bronchodilators as needed - replete lytes - monitor urine output, creatinine - DVT prophylaxis Dr Clifton Problem List - Problems (1) Rectal cancer Code(s): C20 - MALIGNANT NEOPLASM OF RECTUM (2) Shortness of breath Code(s): R06.02 - SHORTNESS OF BREATH (3) Acute bronchospasm Code(s): J98.01 - ACUTE BRONCHOSPASM (4) Obesity Code(s): E66.9 - OBESITY, UNSPECIFIED (5) Renal insufficiency Code(s): N28.9 - DISORDER OF KIDNEY AND URETER, UNSPECIFIED
--- NOTE | 2017-10-31 14:02 | PN ---
Progress Note, Physician Chief Complaint: The patient seen in her daniel. Lying in bed. Feels better today. te better. No chest pain or shortness of breath. - Current Medication List Current Medications: Active Medications Albuterol Sulfate (Ventolin 0.083% Nebulizer Soln -) 1 amp NEB RTID [facility] Last Admin: 10/31/17 07:36 Dose: 1 amp Albuterol Sulfate (Ventolin 0.083% Nebulizer Soln -) 1 amp NEB Q4H PRN PRN Reason: SHORT OF BREATH/WHEEZING Levothyroxine Sodium (Synthroid -) 25 mcg PO DAILY@0700 [facility] Last Admin: 10/31/17 06:37 Dose: 25 mcg Loperamide HCl (Imodium -) 2 mg PO Q8H PRN PRN Reason: DIARRHEA Last Admin: 10/31/17 09:55 Dose: 2 mg Metoprolol Succinate (Toprol Xl -) 25 mg PO DAILY [facility] Last Admin: 10/31/17 09:50 Dose: 25 mg Ondansetron HCl (Zofran Injection) 8 mg IVPB Q8H PRN PRN Reason: NAUSEA Stop: 11/01/17 23:59 Last Admin: 10/30/17 12:47 Dose: 8 mg Pantoprazole Sodium (Protonix -) 40 mg PO DAILY [facility] Last Admin: 10/31/17 09:50 Dose: 40 mg Sodium Bicarbonate (Sodium Bicarbonate -) 650 mg PO BID [facility] Last Admin: 10/31/17 09:50 Dose: 650 mg - Objective Vital Signs: Vital Signs Temperature 97.9 F 10/31/17 06:14 Pulse Rate 89 10/31/17 06:14 Respiratory Rate 20 10/31/17 06:14 Blood Pressure 124/76 10/31/17 06:14 O2 Sat by Pulse Oximetry (%) 98 10/31/17 09:00 Constitutional: Yes: Calm HENT: Yes: Normocephalic Neck: Yes: Trachea Midline Cardiovascular: Yes: S1, S2 Respiratory: Yes: CTA Bilaterally, Diminished Gastrointestinal: Yes: Normal Bowel Sounds Genitourinary: No: Bladder Distention, CVA Tenderness - Left, CVA Tenderness - Right Edema: No Labs: CBC, BMP 10/31/17 06:55 10/31/17 06:55 Problem List - Problems (1) Anemia Code(s): D64.9 - ANEMIA, UNSPECIFIED (2) Hypothyroidism Code(s): E03.9 - HYPOTHYROIDISM, UNSPECIFIED Qualifiers: Hypothyroidism type: unspecified Qualified Code(s): E03.9 - Hypothyroidism , unspecified (3) Rectal cancer Code(s): C20 - MALIGNANT NEOPLASM OF RECTUM (4) Renal insufficiency Code(s): N28.9 - DISORDER OF KIDNEY AND URETER, UNSPECIFIED (5) Shortness of breath Code(s): R06.02 - SHORTNESS OF BREATH (6) Hypomagnesemia Code(s): E83.42 - HYPOMAGNESEMIA (7) Hypokalemia Code(s): E87.6 - HYPOKALEMIA Assessment/Plan 62 year old woman with PMhx of Rectal Ca s/p resection and colostomy who was admitted s/p hypersensitivity reaction during chemo infusion today with Cr of 1.6. The azotemia has improved. Noted Hypokalemia and Hypomagnesemia. most likely due to acute tubular dysfunction related to the Chemo-Rx ( [place]) Will supplement KCl and Mg as needed. ? PT before discharge. Will monitor the Renal Electrolyte profile with you. Thank you. Jade Wright MD
--- NOTE | 2017-10-31 14:25 | PN ---
Progress Note, Physician History of Present Illness: She denies CP or SOB, near or true syncope, palpitations, orthopnea, PND or LE edema. Decreased ostomy output, no recurrence of nausea. - Current Medication List Current Medications: Active Medications Albuterol Sulfate (Ventolin 0.083% Nebulizer Soln -) 1 amp NEB RTID [facility] Last Admin: 10/31/17 07:36 Dose: 1 amp Albuterol Sulfate (Ventolin 0.083% Nebulizer Soln -) 1 amp NEB Q4H PRN PRN Reason: SHORT OF BREATH/WHEEZING Levothyroxine Sodium (Synthroid -) 25 mcg PO DAILY@0700 [facility] Last Admin: 10/31/17 06:37 Dose: 25 mcg Loperamide HCl (Imodium -) 2 mg PO Q8H PRN PRN Reason: DIARRHEA Last Admin: 10/31/17 09:55 Dose: 2 mg Metoprolol Succinate (Toprol Xl -) 25 mg PO DAILY [facility] Last Admin: 10/31/17 09:50 Dose: 25 mg Ondansetron HCl (Zofran Injection) 8 mg IVPB Q8H PRN PRN Reason: NAUSEA Stop: 11/01/17 23:59 Last Admin: 10/30/17 12:47 Dose: 8 mg Pantoprazole Sodium (Protonix -) 40 mg PO DAILY [facility] Last Admin: 10/31/17 09:50 Dose: 40 mg Sodium Bicarbonate (Sodium Bicarbonate -) 650 mg PO BID [facility] Last Admin: 10/31/17 09:50 Dose: 650 mg - Objective Vital Signs: Vital Signs Temperature 97.9 F 10/31/17 06:14 Pulse Rate 89 10/31/17 06:14 Respiratory Rate 20 10/31/17 06:14 Blood Pressure 124/76 10/31/17 06:14 O2 Sat by Pulse Oximetry (%) 98 10/31/17 09:00 Constitutional: Yes: No Distress, Calm Neck: Yes: Supple Cardiovascular: Yes: Regular Rate and Rhythm Respiratory: Yes: Regular Gastrointestinal: Yes: Normal Bowel Sounds, Soft, Abdomen, Obese Edema: No Labs: CBC, BMP 10/31/17 06:55 10/31/17 06:55 Problem List - Problems (1) Prolonged QT interval Code(s): R94.31 - ABNORMAL ELECTROCARDIOGRAM [ECG] [EKG] (2) Acute bronchospasm Code(s): J98.01 - ACUTE BRONCHOSPASM (3) Rectal cancer Code(s): C20 - MALIGNANT NEOPLASM OF RECTUM (4) Renal insufficiency Code(s): N28.9 - DISORDER OF KIDNEY AND URETER, UNSPECIFIED (5) Hypothyroidism Code(s): E03.9 - HYPOTHYROIDISM, UNSPECIFIED Qualifiers: Hypothyroidism type: unspecified Qualified Code(s): E03.9 - Hypothyroidism , unspecified (6) Hypersensitivity reaction Code(s): T78.40XA - ALLERGY, UNSPECIFIED, INITIAL ENCOUNTER Qualifiers: Encounter type: subsequent encounter Qualified Code(s): T78.40XD - Allergy , unspecified, subsequent encounter (7) Hypokalemia Code(s): E87.6 - HYPOKALEMIA Assessment/Plan 1. Rectal Ca on Adjuvant FOLFOX 2. S/p Acute Bronchospasm from [place] based chemo. now resolved 3. FABIAN likely secondary to volume depletion vs AIN vs. obstruction improving 4. Prolonged QTc improved 5. Hypothyroidism P:1. Keep K>4.0, Mg>2.0, replete Mg and K, avoid QT-prolonging agents 2. BD, steroids d/catie, lomotil as needed 3. Renal eval in progress, IV hydration with monitor renal function and electrolytes 4. Continue Toprol XL 25 qd as hemodynamic tolerate 5. D/c planning
[2017-10-31] MEDS: ONDANSETRON 4 MG/2 ML VIAL IVPB PRN (21:03)
[2017-11-01] MEDS: LEVOTHYROXINE NA 25 MCG TABLET (FP) PO SCH (06:17)
[2017-11-01 08:30] LABS: ALBUMIN 2.5 g/dl (3.4-5.0); BILIRUBIN,TOTAL 0.4 mg/dL (0.2-1.0); BLOOD UREA NITROGEN 6 mg/dL (7-18); CALCIUM 7.9 mg/dL (8.5-10.1); CHLORIDE 107 mmol/L (98-107); GLUCOSE,RANDOM 81 mg/dL (74-106); PHOSPHOROUS 2.8 mg/dL (2.5-4.9); POTASSIUM 4.1 mmol/L (3.5-5.1); SGOT/AST 27 U/L (15-37); SODIUM 142 mmol/L (136-145)
[2017-11-01 08:51] LABS: ALK PHOS 114 U/L (45-117); ANION GAP 8 (8-16); CO2 27 mmol/L (21-32); CREATININE 1.1 mg/dL (0.55-1.02); MAGNESIUM 1.6 mg/dL (1.8-2.4); SGPT/ALT 35 U/L (12-78); TOT PROT 4.8 g/dl (6.4-8.2)
[2017-11-01] MEDS: metoPROLOL SUCCINATE 25 MG TAB.SR.24H (FP) PO SCH (09:36)
[2017-11-01] MEDS: PANTOPRAZOLE 40 MG TABLET (FP) PO SCH (09:36)
[2017-11-01] MEDS: SODIUM BICARBONATE 650 MG TABLET PO SCH (09:36)
--- NOTE | 2017-11-01 10:16 | PN ---
Progress Note, Physician History of Present Illness: She denies CP or SOB, near or true syncope, palpitations, orthopnea, PND or LE edema. Decreased ostomy output, no recurrence of nausea. - Current Medication List Current Medications: Active Medications Levothyroxine Sodium (Synthroid -) 25 mcg PO DAILY@0700 [facility] Last Admin: 11/01/17 06:17 Dose: 25 mcg Loperamide HCl (Imodium -) 2 mg PO Q8H PRN PRN Reason: DIARRHEA Last Admin: 10/31/17 18:06 Dose: 2 mg Metoprolol Succinate (Toprol Xl -) 25 mg PO DAILY [facility] Last Admin: 11/01/17 09:36 Dose: 25 mg Ondansetron HCl (Zofran Injection) 8 mg IVPB Q8H PRN PRN Reason: NAUSEA Stop: 11/01/17 23:59 Last Admin: 10/31/17 21:03 Dose: 8 mg Pantoprazole Sodium (Protonix -) 40 mg PO DAILY [facility] Last Admin: 11/01/17 09:36 Dose: 40 mg Sodium Bicarbonate (Sodium Bicarbonate -) 650 mg PO BID [facility] Last Admin: 11/01/17 09:36 Dose: 650 mg - Objective Vital Signs: Vital Signs Temperature 98.1 F 11/01/17 06:17 Pulse Rate 77 11/01/17 06:17 Respiratory Rate 18 11/01/17 06:17 Blood Pressure 125/75 11/01/17 06:17 O2 Sat by Pulse Oximetry (%) 100 10/31/17 21:00 Constitutional: Yes: No Distress, Calm Neck: Yes: Supple Cardiovascular: Yes: Regular Rate and Rhythm Respiratory: Yes: Regular, CTA Bilaterally Gastrointestinal: Yes: Normal Bowel Sounds, Soft Edema: No Labs: CBC, BMP 10/31/17 06:55 11/01/17 06:30 Problem List - Problems (1) Prolonged QT interval Code(s): R94.31 - ABNORMAL ELECTROCARDIOGRAM [ECG] [EKG] (2) Acute bronchospasm Code(s): J98.01 - ACUTE BRONCHOSPASM (3) Rectal cancer Code(s): C20 - MALIGNANT NEOPLASM OF RECTUM (4) Renal insufficiency Code(s): N28.9 - DISORDER OF KIDNEY AND URETER, UNSPECIFIED (5) Hypothyroidism Code(s): E03.9 - HYPOTHYROIDISM, UNSPECIFIED Qualifiers: Hypothyroidism type: unspecified Qualified Code(s): E03.9 - Hypothyroidism , unspecified (6) Hypersensitivity reaction Code(s): T78.40XA - ALLERGY, UNSPECIFIED, INITIAL ENCOUNTER Qualifiers: Encounter type: subsequent encounter Qualified Code(s): T78.40XD - Allergy , unspecified, subsequent encounter (7) Hypokalemia Code(s): E87.6 - HYPOKALEMIA Assessment/Plan 1. Rectal Ca on Adjuvant FOLFOX 2. S/p Acute Bronchospasm from [place] based chemo. now resolved 3. FABIAN likely secondary to volume depletion vs AIN vs. obstruction improving 4. Prolonged QTc improved 5. Hypothyroidism P:1. Keep K>4.0, Mg>2.0, replete Mg and K, avoid QT-prolonging agents 2. BD, steroids d/catie, lomotil as needed 3. Renal eval in progress, IV hydration with monitor renal function and electrolytes 4. Continue Toprol XL 25 qd as hemodynamic tolerate 5. D/c planning
[2017-11-01] MEDS ORDERED: MAGNESIUM 2GM/50ML STERILE WATER IVPB IVPB ONE (13:54)
--- NOTE | 2017-11-01 13:55 | PN ---
Progress Note (short form) - Note Progress Note: Patient seen and examined Feels better Denies diarrhea Last Vital Signs Temp Pulse Resp BP Pulse Ox 98 F 90 20 134/73 100 11/01/17 13:57 11/01/17 13:57 11/01/17 13:57 11/01/17 13:57 11/01/17 09:00 Cor: RSR, No murmurs, No gallops Lungs: Clear to P&A Abd: Soft, Normal bowel sounds, No organomegaly Ext:No significant edema Abnormal Lab Results 11/01/17 11/01/17 06:30 14:05 WBC 15.6 H D RBC 3.33 L Hgb 9.7 L Hct 29.2 L RDW 18.1 H BUN 6 L Creatinine 1.1 H Calcium 7.9 L Magnesium 1.6 L Total Protein 4.8 L Albumin 2.5 L Active Medications Generic Name Dose Route Start Last Admin Trade Name Freq PRN Reason Stop Dose Admin Levothyroxine Sodium 25 mcg 10/27/17 07:00 11/01/17 06:17 Synthroid - PO 25 mcg DAILY@0700 [facility] Administration Loperamide HCl 2 mg 10/30/17 08:48 10/31/17 18:06 Imodium - PO 2 mg Q8H PRN Administration DIARRHEA Metoprolol Succinate 25 mg 10/27/17 11:50 11/01/17 09:36 Toprol Xl - PO 25 mg DAILY [facility] Administration Ondansetron HCl 8 mg 10/30/17 12:10 10/31/17 21:03 Zofran Injection IVPB 11/01/17 23:59 8 mg Q8H PRN Administration NAUSEA Pantoprazole Sodium 40 mg 10/27/17 10:00 11/01/17 09:36 Protonix - PO 40 mg DAILY [facility] Administration Sodium Bicarbonate 650 mg 10/28/17 16:00 11/01/17 09:36 Sodium Bicarbonate - PO 650 mg BID [facility] Administration A/P Rectal Ca on Adjuvant FOLFOX S/p Severe HSN reaction--bronchospasm-- to [place] based chemo. now resolved FABIAN prolonged QTc' diarrhea Lactic acidosis---resolved HypoMag Hypokalemia c diff negative imodium prn repleting lytes. allergy f/u as outpatient Continue supportive care
[2017-11-01 13:59] VITALS: BP 134/73; PULSE 90; TEMP 98
[2017-11-01] MEDS ORDERED: TBO-FILGRASTIM 300 MCG/0.5 ML DISP.SYRINGE SQ ONE (14:12)
[2017-11-01 14:23] LABS: HEMATOCRIT 29.2 % (32.4-45.2); HEMOGLOBIN 9.7 GM/dL (10.7-15.3); MEAN CELL VOLUME 87.7 fl (80-96); MEAN PLT VOLUME 7.9 fl (7.5-11.1); PLATELET COUNT 174 K/MM3 (134-434); RBC 3.33 M/mm3 (3.60-5.2); RDW 18.1 % (11.6-15.6); WHITE BLOOD COUNT 15.6 K/mm3 (4.0-10.0)
--- NOTE | 2017-11-01 15:06 | PN ---
Progress Note, Physician History of Present Illness: pulmonary alert,comfortable,-sob,-bronchospasm - Current Medication List Current Medications: Active Medications Levothyroxine Sodium (Synthroid -) 25 mcg PO DAILY@0700 [facility] Last Admin: 11/01/17 06:17 Dose: 25 mcg Loperamide HCl (Imodium -) 2 mg PO Q8H PRN PRN Reason: DIARRHEA Last Admin: 10/31/17 18:06 Dose: 2 mg Metoprolol Succinate (Toprol Xl -) 25 mg PO DAILY [facility] Last Admin: 11/01/17 09:36 Dose: 25 mg Ondansetron HCl (Zofran Injection) 8 mg IVPB Q8H PRN PRN Reason: NAUSEA Stop: 11/01/17 23:59 Last Admin: 10/31/17 21:03 Dose: 8 mg Pantoprazole Sodium (Protonix -) 40 mg PO DAILY [facility] Last Admin: 11/01/17 09:36 Dose: 40 mg Sodium Bicarbonate (Sodium Bicarbonate -) 650 mg PO BID [facility] Last Admin: 11/01/17 09:36 Dose: 650 mg - Objective Vital Signs: Vital Signs Temperature 98 F 11/01/17 13:57 Pulse Rate 90 11/01/17 13:57 Respiratory Rate 20 11/01/17 13:57 Blood Pressure 134/73 11/01/17 13:57 O2 Sat by Pulse Oximetry (%) 100 11/01/17 09:00 Constitutional: Yes: Well Nourished, Calm Eyes: Yes: WNL HENT: Yes: WNL Neck: Yes: WNL Cardiovascular: Yes: Regular Rate and Rhythm, S1, S2 Respiratory: Yes: CTA Bilaterally Gastrointestinal: Yes: Normal Bowel Sounds, Soft Extremities: Yes: WNL Edema: No Labs: CBC, BMP 11/01/17 14:05 11/01/17 06:30 Assessment/Plan Problem List - Problems (1) Rectal cancer Code(s): C20 - MALIGNANT NEOPLASM OF RECTUM (2) Shortness of breath Code(s): R06.02 - SHORTNESS OF BREATH (3) Acute bronchospasm Code(s): J98.01 - ACUTE BRONCHOSPASM (4) Obesity Code(s): E66.9 - OBESITY, UNSPECIFIED (5) Renal insufficiency Code(s): N28.9 - DISORDER OF KIDNEY AND URETER, UNSPECIFIED Assessment/Plan O2 prn BD TX replete lytes DR BRILL
[2017-11-01 15:59] LABS: PLATELET ESTIMATE NORMAL
== END 2017-11-01 16:17 | disposition home or self-care (01) | DRG 811 ==
LOC: JONCCHEMO 07:33 → J7W 10:17 → JONCCHEMO 10-27 17:46
PROVIDERS: ADMIT Internal Medicine Hematology & Oncology; ATTEND Internal Medicine Hematology & Oncology
DX: T78.40XA Allergy, unspecified, initial encounter (principal); J98.01 Acute bronchospasm; T45.1X5A Adverse effect of antineoplastic and immunosuppressive drugs, initial encounter; C20 Malignant neoplasm of rectum; R06.02 Shortness of breath; N28.9 Disorder of kidney and ureter, unspecified; E66.9 Obesity, unspecified; Z68.30 Body mass index [BMI] 30.0-30.9, adult; N17.9 Acute kidney failure, unspecified; E87.2 Acidosis; R19.7 Diarrhea, unspecified; E83.42 Hypomagnesemia; E87.6 Hypokalemia; E03.9 Hypothyroidism, unspecified; R94.31 Abnormal electrocardiogram [ECG] [EKG]
CPT/HCPCS: 36415; 71045-TC-FY; 76775-TC; 80048; 80053; 80076; 81003; 82550; 82570; 83605; 83735; 84100; 84156; 84300; 84443; 84550; 85025; 87040; 87086; 87177; 87205; 87209; 87324; 87449; 93005; 93010; 94640; 96375; 96413; 96415; 96417; J1100; J1447; J2469; J7030; J9263

== ENCOUNTER 2017-11-09 07:43 | Day surgery (SDC) | payer OTHER ==
[2017-11-09] MEDS ORDERED: DEXAMETHASONE INJECTION 10 MG in SODIUM CHLORIDE 50 ML IVPB ONE (08:00)
[2017-11-09] MEDS ORDERED: PALONOSETRON HCL 0.25 MG/5 ML VIAL IVPUSH ONE (08:00)
[2017-11-09] MEDS ORDERED: LEUCOVORIN INJECTION - 704 MG in DEXTROSE 5%-WATER - 250 ML IVPB ONE (08:30)
[2017-11-09] MEDS ORDERED: FLUOROURACIL 2,500 MG/50 ML VIAL IVPUSH ONE (10:30)
[2017-11-09] MEDS ORDERED: FLUOROURACIL 4,225 MG in SODIUM CHLORIDE 7.5 ML CP ONE (10:40)
[2017-11-09 10:58] LABS: BASO % 0.2 % (0-2.0); EOS % 0.9 % (0-4.5); HEMATOCRIT 33.8 % (32.4-45.2); HEMOGLOBIN 11.3 GM/dL (10.7-15.3); LYMPH % 8.7 % (8-40); MCH 29.8 pg (25.7-33.7); MCHC 33.4 g/dl (32.0-36.0); MEAN CELL VOLUME 89.2 fl (80-96); MEAN PLT VOLUME 8.1 fl (7.5-11.1); MONO % 9.8 % (3.8-10.2); NEUT % 80.4 % (42.8-82.8); PLATELET COUNT 198 K/MM3 (134-434); RBC 3.78 M/mm3 (3.60-5.2); RDW 20.5 % (11.6-15.6); WHITE BLOOD COUNT 8.8 K/mm3 (4.0-10.0)
[2017-11-09 12:16] LABS: BLOOD UREA NITROGEN 9 mg/dL (7-18); CREATININE 1.3 mg/dL (0.55-1.02); GLUCOSE,RANDOM 136 mg/dL (74-106)
[2017-11-09 12:17] LABS: ALBUMIN 3.2 g/dl (3.4-5.0); ANION GAP 5 (8-16); BILIRUBIN,TOTAL 0.4 mg/dL (0.2-1.0); CALCIUM 8.7 mg/dL (8.5-10.1); CHLORIDE 113 mmol/L (98-107); CO2 22 mmol/L (21-32); SODIUM 140 mmol/L (136-145); TOT PROT 6.4 g/dl (6.4-8.2)
[2017-11-09 12:18] LABS: ALK PHOS 108 U/L (45-117); SGOT/AST 23 U/L (15-37); SGPT/ALT 34 U/L (12-78)
[2017-11-09 12:28] LABS: BILIRUBIN,DIRECT < 0.2 mg/dL (0.0-0.2); MAGNESIUM 1.6 mg/dL (1.8-2.4)
[2017-11-09] MEDS ORDERED: SODIUM CHLORIDE 1,000 ML IV SCH (12:30)
[2017-11-09 13:38] LABS: ANISOCYTOSIS 1+; MACROCYTOSIS 1+; PLATELET ESTIMATE NORMAL
[2017-11-09 13:57] VITALS: TEMP 98.1
[2017-11-09] MEDS ORDERED: MAGNESIUM SULF 50% (8.12 MEQ/2 ML-1 GM VIAL) IVPB ONE (15:11)
[2017-11-09 18:42] VITALS: BP 122/68; PULSE 83
== END 2017-11-09 18:43 | disposition home or self-care (01) ==
LOC: JONCCHEMO 07:43 → J7W 12:13 → JONCCHEMO 18:43
PROVIDERS: ATTEND Internal Medicine Hematology & Oncology
PROC: 3E04305 Introduction of Other Antineoplastic into Central Vein, Percutaneous Approach (ICD-10-PCS; principal; 2017-11-09)
PROC: 3E033GC Introduction of Other Therapeutic Substance into Peripheral Vein, Percutaneous Approach (ICD-10-PCS; 2017-11-09)
PROC: 3E0337Z Introduction of Electrolytic and Water Balance Substance into Peripheral Vein, Percutaneous Approach (ICD-10-PCS; 2017-11-09)
DX: Z51.11 Encounter for antineoplastic chemotherapy (principal); C20 Malignant neoplasm of rectum
CPT/HCPCS: 36415; 80053; 80076; 83735; 85025; 96361; 96365; 96375; 96409; G0498; J1100; J2469; J7030

== ENCOUNTER 2017-11-11 06:41 | Day surgery (SDC) | payer OTHER ==
[2017-11-11] MEDS ORDERED: SODIUM CHLORIDE 500 ML IV ONE (10:00)
[2017-11-11 15:55] VITALS: BP 115/72; PULSE 68; TEMP 97.4
[2017-11-11] MEDS ORDERED: PORTA CATH FLUSH 10 ML IVPUSH ONE (15:55)
== END 2017-11-11 16:31 | disposition home or self-care (01) ==
LOC: JONCCHEMO 06:41
PROVIDERS: ATTEND Internal Medicine Hematology & Oncology
PROC: 0JPVXVZ Removal of Infusion Pump from Upper Extremity Subcutaneous Tissue and Fascia, External Approach (ICD-10-PCS; principal; 2017-11-11)
DX: Z53.8 Procedure and treatment not carried out for other reasons (principal)

== ENCOUNTER 2017-11-12 07:33 | Day surgery (SDC) | payer OTHER ==
[2017-11-12] MEDS ORDERED: TBO-FILGRASTIM 480 MCG/0.8 ML DISP.SYRIN SQ ONE (09:30)
[2017-11-12] MEDS ORDERED: SODIUM CHLORIDE 500 ML IV ONE (09:30)
[2017-11-12] MEDS ORDERED: SODIUM CHLORIDE 1,000 ML IV ONE (10:15)
[2017-11-12 14:24] VITALS: TEMP 98.2
[2017-11-12 14:30] VITALS: BP 106/71; PULSE 78
[2017-11-12] MEDS ORDERED: PORTA CATH FLUSH 10 ML IVPUSH ONE (14:40)
== END 2017-11-12 12:30 | disposition home or self-care (01) ==
LOC: JONCCHEMO 07:33 → J7W 09:11 → JONCCHEMO 12:30
PROVIDERS: ATTEND Internal Medicine Hematology & Oncology
PROC: 3E013GC Introduction of Other Therapeutic Substance into Subcutaneous Tissue, Percutaneous Approach (ICD-10-PCS; principal; 2017-11-12)
DX: C20 Malignant neoplasm of rectum (principal); Z76.89 Persons encountering health services in other specified circumstances
CPT/HCPCS: 96360; 96361; 96372; 96374; J1447

== ENCOUNTER 2017-11-23 07:44 | Day surgery (SDC) | payer OTHER ==
[2017-11-23] MEDS ORDERED: DEXAMETHASONE INJECTION 10 MG in SODIUM CHLORIDE 50 ML IVPB ONE (08:00)
[2017-11-23] MEDS ORDERED: PALONOSETRON HCL 0.25 MG/5 ML VIAL IVPUSH ONE (08:00)
[2017-11-23] MEDS ORDERED: LEUCOVORIN INJECTION - 656 MG in DEXTROSE 5%-WATER - 250 ML IVPB ONE (08:30)
[2017-11-23] MEDS ORDERED: FLUOROURACIL 2,500 MG/50 ML VIAL IVPUSH ONE (10:30)
[2017-11-23] MEDS ORDERED: FLUOROURACIL 3,925 MG in SODIUM CHLORIDE 13.5 ML CP ONE (10:40)
[2017-11-23 11:20] LABS: BASO % 0.2 % (0-2.0); EOS % 6.6 % (0-4.5); HEMATOCRIT 30.3 % (32.4-45.2); HEMOGLOBIN 10.2 GM/dL (10.7-15.3); LYMPH % 24.9 % (8-40); MCH 30.6 pg (25.7-33.7); MCHC 33.5 g/dl (32.0-36.0); MEAN CELL VOLUME 91.4 fl (80-96); MEAN PLT VOLUME 7.5 fl (7.5-11.1); NEUT % 53.3 % (42.8-82.8); PLATELET COUNT 143 K/MM3 (134-434); RBC 3.32 M/mm3 (3.60-5.2); RDW 20.7 % (11.6-15.6); WHITE BLOOD COUNT 2.9 K/mm3 (4.0-10.0)
[2017-11-23 11:55] LABS: ALBUMIN 3.4 g/dl (3.4-5.0); ANION GAP 9 (8-16); BLOOD UREA NITROGEN 7 mg/dL (7-18); CALCIUM 8.5 mg/dL (8.5-10.1); CHLORIDE 108 mmol/L (98-107); CO2 23 mmol/L (21-32); GLUCOSE,RANDOM 113 mg/dL (74-106); MAGNESIUM 1.6 mg/dL (1.8-2.4); POTASSIUM 3.9 mmol/L (3.5-5.1); SODIUM 140 mmol/L (136-145)
[2017-11-23 11:59] LABS: ALK PHOS 102 U/L (45-117); BILIRUBIN,DIRECT < 0.2 mg/dL (0.0-0.2); BILIRUBIN,TOTAL 0.4 mg/dL (0.2-1.0); CREATININE 1.1 mg/dL (0.55-1.02); SGOT/AST 22 U/L (15-37); SGPT/ALT 30 U/L (12-78); TOT PROT 6.4 g/dl (6.4-8.2)
[2017-11-23] MEDS ORDERED: SODIUM CHLORIDE 1,000 ML IV STA (12:06)
[2017-11-23] MEDS ORDERED: MAGNESIUM SULF 50% (8.12 MEQ/2 ML-1 GM VIAL) IVPB ONE (12:07)
[2017-11-23 12:12] LABS: ANISOCYTOSIS 1+; MACROCYTOSIS 1+; PLATELET ESTIMATE NORMAL
[2017-11-23 15:56] VITALS: TEMP 98.1
[2017-11-23 17:19] VITALS: BP 131/76; PULSE 86
== END 2017-11-23 17:29 | disposition home or self-care (01) ==
LOC: JONCCHEMO 07:44 → J7W 12:13 → JONCCHEMO 17:29
PROVIDERS: ATTEND Internal Medicine Hematology & Oncology
PROC: 3E043GC Introduction of Other Therapeutic Substance into Central Vein, Percutaneous Approach (ICD-10-PCS; principal; 2017-11-23)
DX: C20 Malignant neoplasm of rectum (principal)
CPT/HCPCS: 36415; 80053; 80076; 83735; 85025; 96361; 96365; 96366; 96367; 96375; 96409; 96415; 96417; G0498; J1100; J2469; J7030

== ENCOUNTER 2017-11-25 07:15 | Day surgery (SDC) | payer OTHER ==
[2017-11-25 16:42] VITALS: BP 107/64; PULSE 86; TEMP 97.4
[2017-11-25] MEDS ORDERED: PORTA CATH FLUSH 10 ML IVPUSH ONE (16:42)
[2017-11-26] MEDS ORDERED: SODIUM CHLORIDE 500 ML IV ONE (09:00)
[2017-11-26] MEDS ORDERED: TBO-FILGRASTIM 480 MCG/0.8 ML DISP.SYRIN SQ ONE (09:00)
== END 2017-11-25 14:35 | disposition home or self-care (01) ==
LOC: JONCCHEMO 07:15
PROVIDERS: ATTEND Internal Medicine Hematology & Oncology
PROC: 0JPVXVZ Removal of Infusion Pump from Upper Extremity Subcutaneous Tissue and Fascia, External Approach (ICD-10-PCS; principal; 2017-11-25)
DX: Z53.8 Procedure and treatment not carried out for other reasons (principal)

== ENCOUNTER 2017-11-26 07:30 | Day surgery (SDC) | payer OTHER ==
[2017-11-26] MEDS ORDERED: TBO-FILGRASTIM 480 MCG/0.8 ML DISP.SYRIN SQ ONE (09:00)
[2017-11-26] MEDS ORDERED: SODIUM CHLORIDE 500 ML IV ONE (09:00)
[2017-11-26 17:27] VITALS: TEMP 98.5
[2017-11-26 17:31] VITALS: BP 112/68; PULSE 94
[2017-11-26] MEDS ORDERED: PORTA CATH FLUSH 10 ML IVPUSH ONE (17:31)
== END 2017-11-26 12:45 | disposition home or self-care (01) ==
LOC: JONCCHEMO 07:30 → J7W 10:19 → JONCCHEMO 12:45
PROVIDERS: ATTEND Internal Medicine Hematology & Oncology
PROC: 3E0437Z Introduction of Electrolytic and Water Balance Substance into Central Vein, Percutaneous Approach (ICD-10-PCS; principal; 2017-11-26)
PROC: 3E013GC Introduction of Other Therapeutic Substance into Subcutaneous Tissue, Percutaneous Approach (ICD-10-PCS; 2017-11-26)
DX: C20 Malignant neoplasm of rectum (principal); Z76.89 Persons encountering health services in other specified circumstances
CPT/HCPCS: 96360; 96361; 96372; 96417; J1447

== ENCOUNTER 2017-11-27 10:52 | Day surgery (SDC) | payer OTHER ==
[~2017-11-27 10:52] MED LIST: TBO-FILGRASTIM 480 MCG/0.8 ML DISP.SYRIN SQ ONE
[2017-11-27 11:12] VITALS: BP 118/76; PULSE 78; TEMP 98
== END 2017-11-27 16:00 | disposition home or self-care (01) ==
LOC: JONCCHEMO 10:52 → J7W 10:53 → JONCCHEMO 16:00
PROVIDERS: ATTEND Internal Medicine Hematology & Oncology
PROC: 3E013GC Introduction of Other Therapeutic Substance into Subcutaneous Tissue, Percutaneous Approach (ICD-10-PCS; principal; 2017-11-27)
DX: C20 Malignant neoplasm of rectum (principal); Z76.89 Persons encountering health services in other specified circumstances
CPT/HCPCS: 96372; J1447

== ENCOUNTER 2017-12-07 07:34 | Day surgery (SDC) | payer OTHER ==
[2017-12-07] MEDS ORDERED: PALONOSETRON HCL 0.25 MG/5 ML VIAL IVPUSH ONE (10:00)
[2017-12-07] MEDS ORDERED: DEXAMETHASONE INJECTION 10 MG in SODIUM CHLORIDE 50 ML IVPB ONE (10:00)
[2017-12-07] MEDS ORDERED: LEUCOVORIN INJECTION - 656 MG in DEXTROSE 5%-WATER - 250 ML IVPB ONE (10:30)
[2017-12-07 11:34] LABS: BASO % 0.3 % (0-2.0); HEMATOCRIT 31.3 % (32.4-45.2); HEMOGLOBIN 10.3 GM/dL (10.7-15.3); LYMPH % 23.2 % (8-40); MCH 31.1 pg (25.7-33.7); MCHC 32.9 g/dl (32.0-36.0); MEAN CELL VOLUME 94.4 fl (80-96); MEAN PLT VOLUME 7.7 fl (7.5-11.1); MONO % 14.7 % (3.8-10.2); NEUT % 59.8 % (42.8-82.8); PLATELET COUNT 159 K/MM3 (134-434); RBC 3.31 M/mm3 (3.60-5.2); RDW 19.7 % (11.6-15.6); WHITE BLOOD COUNT 4.3 K/mm3 (4.0-10.0)
[2017-12-07 12:12] LABS: CHLORIDE 109 mmol/L (98-107); POTASSIUM 4.3 mmol/L (3.5-5.1); SODIUM 138 mmol/L (136-145)
[2017-12-07] MEDS ORDERED: FLUOROURACIL 500 MG/10 ML VIAL IVPUSH ONE (12:30)
[2017-12-07] MEDS ORDERED: FLUOROURACIL 3,925 MG in SODIUM CHLORIDE 13.5 ML CP ONE (12:45)
[2017-12-07 12:50] LABS: ALBUMIN 3.6 g/dl (3.4-5.0); ALK PHOS 110 U/L (45-117); ANION GAP 9 (8-16); BILIRUBIN,DIRECT < 0.2 mg/dL (0.0-0.2); BILIRUBIN,TOTAL 0.4 mg/dL (0.2-1.0); BLOOD UREA NITROGEN 11 mg/dL (7-18); CALCIUM 8.4 mg/dL (8.5-10.1); CO2 20 mmol/L (21-32); CREATININE 1.3 mg/dL (0.55-1.02); GLUCOSE,RANDOM 112 mg/dL (74-106); MAGNESIUM 1.2 mg/dL (1.8-2.4); SGOT/AST 19 U/L (15-37); SGPT/ALT 30 U/L (12-78); TOT PROT 6.7 g/dl (6.4-8.2)
[2017-12-07 13:21] LABS: ANISOCYTOSIS 1+; MACROCYTOSIS 1+; OVALOCYTE 1+
[2017-12-07 13:26] LABS: PLATELET ESTIMATE ADEQUATE
[2017-12-07] MEDS ORDERED: SODIUM CHLORIDE 500 ML IV ONE (14:15)
[2017-12-07 15:33] VITALS: TEMP 98
[2017-12-07 17:47] VITALS: BP 125/73; PULSE 78
== END 2017-12-07 17:30 | disposition home or self-care (01) ==
LOC: JONCCHEMO 07:34 → J7W 12:38 → JONCCHEMO 17:30
PROVIDERS: ATTEND Internal Medicine Hematology & Oncology
DX: Z51.11 Encounter for antineoplastic chemotherapy (principal); C20 Malignant neoplasm of rectum
CPT/HCPCS: 36415; 80053; 80076; 83735; 85025; 96361; 96365; 96366; 96375; 96409; 96415; 96417; G0498; J1100; J2469; J9190

== ENCOUNTER 2017-12-10 08:20 | Day surgery (SDC) | payer OTHER ==
[2017-12-10] MEDS ORDERED: MAGNESIUM SULF 50% (8.12 MEQ/2 ML-1 GM VIAL) IVPB ONE (10:26)
[2017-12-10] MEDS ORDERED: SODIUM CHLORIDE 1,000 ML IV SCH (10:30)
[2017-12-10 11:06] VITALS: TEMP 98.8
[2017-12-10] MEDS ORDERED: TBO-FILGRASTIM 480 MCG/0.8 ML DISP.SYRIN SQ ONE (11:15)
[2017-12-10] MEDS ORDERED: MAGNESIUM SULFATE IN WATER 2 GM/50 ML IVPB IVPB ONE (11:15)
[2017-12-10 15:25] VITALS: BP 106/69; PULSE 72
[2017-12-10] MEDS ORDERED: PORTA CATH FLUSH 10 ML IVPUSH ONE (15:25)
== END 2017-12-10 14:40 | disposition home or self-care (01) ==
LOC: JONCCHEMO 08:20 → J7W 10:08 → JONCCHEMO 14:40
PROVIDERS: ATTEND Internal Medicine Hematology & Oncology
PROC: 3E013GC Introduction of Other Therapeutic Substance into Subcutaneous Tissue, Percutaneous Approach (ICD-10-PCS; principal; 2017-12-10)
PROC: 3E043GC Introduction of Other Therapeutic Substance into Central Vein, Percutaneous Approach (ICD-10-PCS; 2017-12-10)
PROC: 3E0437Z Introduction of Electrolytic and Water Balance Substance into Central Vein, Percutaneous Approach (ICD-10-PCS; 2017-12-10)
DX: C20 Malignant neoplasm of rectum (principal); Z76.89 Persons encountering health services in other specified circumstances
CPT/HCPCS: 96361; 96365; 96372; 96417; J1447; J7030

== ENCOUNTER 2017-12-14 07:34 | Day surgery (SDC) | payer OTHER ==
[2017-12-14] MEDS ORDERED: TBO-FILGRASTIM 480 MCG/0.8 ML DISP.SYRIN SQ ONE (12:00)
[2017-12-14 15:50] VITALS: BP 113/71; PULSE 77; TEMP 97.7
== END 2017-12-14 12:30 | disposition home or self-care (01) ==
LOC: JONCCHEMO 07:34 → J7W 11:30 → JONCCHEMO 12:30
PROVIDERS: ATTEND Internal Medicine Hematology & Oncology
PROC: 3E013GC Introduction of Other Therapeutic Substance into Subcutaneous Tissue, Percutaneous Approach (ICD-10-PCS; principal; 2017-12-14)
DX: C20 Malignant neoplasm of rectum (principal); Z76.89 Persons encountering health services in other specified circumstances
CPT/HCPCS: 96372; J1447

== ENCOUNTER 2017-12-21 07:39 | Day surgery (SDC) | payer OTHER ==
[2017-12-21] MEDS ORDERED: PALONOSETRON HCL 0.25 MG/5 ML VIAL IVPUSH ONE (10:00)
[2017-12-21] MEDS ORDERED: LEUCOVORIN INJECTION - 656 MG in DEXTROSE 5%-WATER - 250 ML IVPB ONE (10:30)
[2017-12-21 11:05] LABS: BASO % 0.5 % (0-2.0); EOS % 2.8 % (0-4.5); HEMATOCRIT 30.3 % (32.4-45.2); HEMOGLOBIN 10.2 GM/dL (10.7-15.3); LYMPH % 25.4 % (8-40); MCH 32.2 pg (25.7-33.7); MCHC 33.6 g/dl (32.0-36.0); MEAN CELL VOLUME 95.7 fl (80-96); MEAN PLT VOLUME 7.6 fl (7.5-11.1); MONO % 19.6 % (3.8-10.2); NEUT % 51.7 % (42.8-82.8); PLATELET COUNT 173 K/MM3 (134-434); RBC 3.16 M/mm3 (3.60-5.2); RDW 18.7 % (11.6-15.6); WHITE BLOOD COUNT 4.8 K/mm3 (4.0-10.0)
[2017-12-21 11:40] LABS: ALBUMIN 3.6 g/dl (3.4-5.0); ALK PHOS 105 U/L (45-117); ANION GAP 10 (8-16); BILIRUBIN,DIRECT 0.2 mg/dL (0.0-0.2); BILIRUBIN,TOTAL 0.4 mg/dL (0.2-1.0); BLOOD UREA NITROGEN 13 mg/dL (7-18); CALCIUM 8.4 mg/dL (8.5-10.1); CHLORIDE 106 mmol/L (98-107); CO2 24 mmol/L (21-32); CREATININE 1.2 mg/dL (0.55-1.02); GLUCOSE,RANDOM 112 mg/dL (74-106); MAGNESIUM 1.4 mg/dL (1.8-2.4); POTASSIUM 3.8 mmol/L (3.5-5.1); SGOT/AST 20 U/L (15-37); SGPT/ALT 27 U/L (12-78); SODIUM 140 mmol/L (136-145); TOT PROT 6.7 g/dl (6.4-8.2)
[2017-12-21] MEDS ORDERED: SODIUM CHLORIDE 250 ML IV SCH ×2 (11:45→17:15)
[2017-12-21] MEDS: DEXAMETHASONE INJECTION 10 MG in SODIUM CHLORIDE 50 ML IVPB ONE ×2 (12:05→13:15)
[2017-12-21 12:06] LABS: ANISOCYTOSIS 2+; MACROCYTOSIS 1+; OVALOCYTE 1+; PLATELET ESTIMATE NORMAL
[2017-12-21] MEDS ORDERED: MAGNESIUM SULFATE IN WATER 2 GM/50 ML IVPB IVPB ONE (12:30)
[2017-12-21] MEDS ORDERED: FLUOROURACIL 500 MG/10 ML VIAL IVPUSH ONE (12:30)
[2017-12-21] MEDS ORDERED: FLUOROURACIL 3,925 MG in SODIUM CHLORIDE 13.5 ML CP ONE (12:45)
[2017-12-21 16:54] VITALS: TEMP 98
[2017-12-21] MEDS ORDERED: PORTA CATH FLUSH 10 ML IVPUSH ONE (17:30)
[2017-12-21 17:39] VITALS: BP 122/76; PULSE 73
[2017-12-23] MEDS ORDERED: SODIUM CHLORIDE 250 ML IV SCH (11:45)
== END 2017-12-21 16:55 | disposition home or self-care (01) ==
LOC: JONCCHEMO 07:39 → J7W 11:59 → JONCCHEMO 16:55
PROVIDERS: ATTEND Internal Medicine Hematology & Oncology
PROC: 3E04305 Introduction of Other Antineoplastic into Central Vein, Percutaneous Approach (ICD-10-PCS; principal; 2017-12-21)
PROC: 3E04305 Introduction of Other Antineoplastic into Central Vein, Percutaneous Approach (ICD-10-PCS; 2017-12-21)
PROC: 3E0337Z Introduction of Electrolytic and Water Balance Substance into Peripheral Vein, Percutaneous Approach (ICD-10-PCS; 2017-12-21)
PROC: 3E0437Z Introduction of Electrolytic and Water Balance Substance into Central Vein, Percutaneous Approach (ICD-10-PCS; 2017-12-21)
DX: Z51.11 Encounter for antineoplastic chemotherapy (principal); C20 Malignant neoplasm of rectum
CPT/HCPCS: 36415; 80053; 80076; 83735; 85025; 96361; 96365; 96366; 96375; 96409; 96415; 96417; G0498; J1100; J2469; J9190

== ENCOUNTER 2017-12-23 07:37 | Day surgery (SDC) | payer OTHER ==
[2017-12-23 16:30] VITALS: BP 106/71; PULSE 70; TEMP 98.7
[2017-12-23] MEDS ORDERED: PORTA CATH FLUSH 10 ML IVPUSH ONE (16:30)
== END 2017-12-23 15:00 | disposition home or self-care (01) ==
LOC: JONCCHEMO 07:37 → J7W 15:02
PROVIDERS: ATTEND Internal Medicine Hematology & Oncology
PROC: 0JPVXVZ Removal of Infusion Pump from Upper Extremity Subcutaneous Tissue and Fascia, External Approach (ICD-10-PCS; principal; 2017-12-23)
DX: Z53.8 Procedure and treatment not carried out for other reasons (principal)

== ENCOUNTER 2017-12-24 07:14 | Day surgery (SDC) | payer OTHER ==
[2017-12-24] MEDS ORDERED: TBO-FILGRASTIM 480 MCG/0.8 ML DISP.SYRIN SQ ONE (10:00)
[2017-12-24] MEDS ORDERED: SODIUM CHLORIDE 500 ML IV ONE (10:00)
[2017-12-24 10:02] VITALS: TEMP 98.3
[2017-12-24] MEDS ORDERED: PORTA CATH FLUSH 10 ML IVPUSH ONE (10:02)
[2017-12-24 15:57] VITALS: BP 120/72; PULSE 71
== END 2017-12-24 12:15 | disposition home or self-care (01) ==
LOC: JONCNONCHE 07:14 → J7W 09:44 → JONCNONCHE 12:15
PROVIDERS: ATTEND Internal Medicine Hematology & Oncology
PROC: 3E013GC Introduction of Other Therapeutic Substance into Subcutaneous Tissue, Percutaneous Approach (ICD-10-PCS; principal; 2017-12-24)
PROC: 3E0437Z Introduction of Electrolytic and Water Balance Substance into Central Vein, Percutaneous Approach (ICD-10-PCS; 2017-12-24)
DX: C20 Malignant neoplasm of rectum (principal); Z76.89 Persons encountering health services in other specified circumstances
CPT/HCPCS: 96360; 96361; 96372; J1447

== ENCOUNTER 2018-01-04 07:31 | Day surgery (SDC) | payer OTHER ==
[2018-01-04] MEDS ORDERED: DEXAMETHASONE INJECTION 10 MG in SODIUM CHLORIDE 50 ML IVPB ONE (08:00)
[2018-01-04] MEDS ORDERED: PALONOSETRON HCL 0.25 MG/5 ML VIAL IVPUSH ONE (08:00)
[2018-01-04] MEDS ORDERED: LEUCOVORIN INJECTION - 656 MG in DEXTROSE 5%-WATER - 250 ML IVPB ONE (08:30)
[2018-01-04 10:28] VITALS: TEMP 98.2
[2018-01-04] MEDS ORDERED: FLUOROURACIL 2,500 MG/50 ML VIAL IVPUSH ONE (10:30)
[2018-01-04] MEDS ORDERED: FLUOROURACIL 3,925 MG in SODIUM CHLORIDE 13.5 ML IV ONE (10:45)
[2018-01-04 10:48] LABS: EOS % 3.7 % (0-4.5); HEMATOCRIT 33.1 % (32.4-45.2); LYMPH % 24.6 % (8-40); MCH 31.9 pg (25.7-33.7); MCHC 33.3 g/dl (32.0-36.0); MEAN CELL VOLUME 95.7 fl (80-96); MONO % 15.5 % (3.8-10.2); NEUT % 55.2 % (42.8-82.8); RBC 3.46 M/mm3 (3.60-5.2); RDW 16.5 % (11.6-15.6); WHITE BLOOD COUNT 4.2 K/mm3 (4.0-10.0)
[2018-01-04 11:10] LABS: ALBUMIN 3.8 g/dl (3.4-5.0); BILIRUBIN,DIRECT 0.3 mg/dL (0.0-0.2); BILIRUBIN,TOTAL 0.5 mg/dL (0.2-1.0); MAGNESIUM 1.1 mg/dL (1.8-2.4); TOT PROT 6.8 g/dl (6.4-8.2)
[2018-01-04 11:11] LABS: ALBUMIN 3.9 g/dl (3.4-5.0); ANION GAP 10 (8-16); BLOOD UREA NITROGEN 10 mg/dL (7-18); CALCIUM 8.8 mg/dL (8.5-10.1); CHLORIDE 109 mmol/L (98-107); CO2 20 mmol/L (21-32); CREATININE 1.4 mg/dL (0.55-1.02); GLUCOSE,RANDOM 119 mg/dL (74-106); POTASSIUM 3.7 mmol/L (3.5-5.1); SGOT/AST 19 U/L (15-37); SGPT/ALT 25 U/L (12-78); SODIUM 139 mmol/L (136-145)
[2018-01-04 11:12] LABS: ALK PHOS 117 U/L (45-117); BILIRUBIN,TOTAL 0.5 mg/dL (0.2-1.0); TOT PROT 6.9 g/dl (6.4-8.2)
[2018-01-04 11:18] LABS: PLATELET COUNT 118 K/MM3 (134-434)
[2018-01-04 11:19] LABS: MEAN PLT VOLUME 8.6 fl (7.5-11.1); PLATELET ESTIMATE ADEQUATE
[2018-01-04] MEDS ORDERED: MAGNESIUM SULF 50% (8.12 MEQ/2 ML-1 GM VIAL) IVPB ONE (12:03)
[2018-01-04] MEDS ORDERED: SODIUM CHLORIDE 1,000 ML IV STA (12:09)
[2018-01-04] MEDS ORDERED: MAGNESIUM SULFATE IN WATER 2 GM/50 ML IVPB IVPB ONE (13:00)
[2018-01-04] MEDS ORDERED: PORTA CATH FLUSH 10 ML IVPUSH ONE (15:08)
[2018-01-04 19:00] VITALS: BP 140/75; PULSE 79
== END 2018-01-04 18:45 | disposition home or self-care (01) ==
LOC: JONCCHEMO 07:31 → J7W 12:47 → JONCCHEMO 18:45
PROVIDERS: ATTEND Internal Medicine Hematology & Oncology
PROC: 3E04305 Introduction of Other Antineoplastic into Central Vein, Percutaneous Approach (ICD-10-PCS; principal; 2018-01-04)
PROC: 3E04305 Introduction of Other Antineoplastic into Central Vein, Percutaneous Approach (ICD-10-PCS; 2018-01-04)
PROC: 3E0437Z Introduction of Electrolytic and Water Balance Substance into Central Vein, Percutaneous Approach (ICD-10-PCS; 2018-01-04)
PROC: 3E043GC Introduction of Other Therapeutic Substance into Central Vein, Percutaneous Approach (ICD-10-PCS; 2018-01-04)
DX: Z51.11 Encounter for antineoplastic chemotherapy (principal); C20 Malignant neoplasm of rectum
CPT/HCPCS: 36415; 80053; 80076; 83735; 85025; 96361; 96365; 96366; 96367; 96375; 96415; 96417; G0498; J1100; J2469; J7030

== ENCOUNTER 2018-01-07 07:23 | Day surgery (SDC) | payer OTHER ==
[2018-01-07] MEDS ORDERED: SODIUM CHLORIDE 500 ML IV ONE (10:00)
[2018-01-07] MEDS ORDERED: TBO-FILGRASTIM 480 MCG/0.8 ML DISP.SYRIN SQ ONE (12:00)
[2018-01-07 15:57] VITALS: TEMP 98.2
[2018-01-07 17:16] VITALS: BP 119/74; PULSE 76
[2018-01-07] MEDS ORDERED: PORTA CATH FLUSH 10 ML IVPUSH ONE (17:16)
[2018-01-10] MEDS ORDERED: TBO-FILGRASTIM 480 MCG/0.8 ML DISP.SYRIN SQ ONE (10:00)
== END 2018-01-07 14:45 | disposition home or self-care (01) ==
LOC: JONCNONCHE 07:23 → J7W 12:23 → JONCNONCHE 14:45
PROVIDERS: ATTEND Internal Medicine Hematology & Oncology
PROC: 3E013GC Introduction of Other Therapeutic Substance into Subcutaneous Tissue, Percutaneous Approach (ICD-10-PCS; principal; 2018-01-07)
PROC: 3E0437Z Introduction of Electrolytic and Water Balance Substance into Central Vein, Percutaneous Approach (ICD-10-PCS; 2018-01-07)
DX: C20 Malignant neoplasm of rectum (principal); Z76.89 Persons encountering health services in other specified circumstances; I10 Essential (primary) hypertension; E03.9 Hypothyroidism, unspecified; K21.9 Gastro-esophageal reflux disease without esophagitis
CPT/HCPCS: 96360; 96361; 96372; 96401; J1447

== ENCOUNTER 2018-01-20 07:33 | Day surgery (SDC) | payer OTHER ==
[2018-01-20 17:01] VITALS: BP 124/77; PULSE 73; TEMP 98.3
[2018-01-20] MEDS ORDERED: PORTA CATH FLUSH 10 ML IVPUSH ONE (17:15)
== END 2018-01-20 16:15 | disposition home or self-care (01) ==
LOC: JONCCHEMO 07:33 → J7W 15:55 → JONCCHEMO 16:15
PROVIDERS: ATTEND Internal Medicine Hematology & Oncology
PROC: 0JPVXVZ Removal of Infusion Pump from Upper Extremity Subcutaneous Tissue and Fascia, External Approach (ICD-10-PCS; principal; 2018-01-20)
DX: Z53.8 Procedure and treatment not carried out for other reasons (principal)

== ENCOUNTER 2018-01-21 07:23 | Day surgery (SDC) | payer OTHER ==
[2018-01-21] MEDS ORDERED: SODIUM CHLORIDE 1,000 ML IV ONE (08:00)
[2018-01-21] MEDS ORDERED: TBO-FILGRASTIM 300 MCG/0.5 ML DISP.SYRINGE SQ ONE (08:00)
[2018-01-21] MEDS ORDERED: MAGNESIUM SULFATE IN WATER 2 GM/50 ML IVPB IVPB ONE (10:00)
[2018-01-21 11:38] VITALS: TEMP 97.5
[2018-01-21] MEDS ORDERED: PORTA CATH FLUSH 10 ML IVPUSH ONE (11:38)
[2018-01-21 14:53] VITALS: BP 110/76; PULSE 86
== END 2018-01-21 14:54 | disposition home or self-care (01) ==
LOC: JONCCHEMO 07:23 → J7W 10:56 → JONCCHEMO 14:54
PROVIDERS: ATTEND Internal Medicine Hematology & Oncology
PROC: 3E013GC Introduction of Other Therapeutic Substance into Subcutaneous Tissue, Percutaneous Approach (ICD-10-PCS; principal; 2018-01-21)
PROC: 3E043GC Introduction of Other Therapeutic Substance into Central Vein, Percutaneous Approach (ICD-10-PCS; 2018-01-21)
PROC: 3E043GC Introduction of Other Therapeutic Substance into Central Vein, Percutaneous Approach (ICD-10-PCS; 2018-01-21)
DX: C20 Malignant neoplasm of rectum (principal); Z76.89 Persons encountering health services in other specified circumstances
CPT/HCPCS: 96361; 96417; J1447; J7030

== ENCOUNTER 2018-01-24 07:41 | Day surgery (SDC) | payer OTHER ==
[2018-01-24] MEDS ORDERED: TBO-FILGRASTIM 300 MCG/0.5 ML DISP.SYRINGE SQ ONE ×2 (09:00→11:00)
[2018-01-24] MEDS ORDERED: TBO-FILGRASTIM 480 MCG/0.8 ML DISP.SYRIN SQ ONE (10:00)
[2018-01-24 10:54] VITALS: BP 129/78; PULSE 96; TEMP 98.6
== END 2018-01-24 10:55 | disposition home or self-care (01) ==
LOC: JONCCHEMO 07:41 → J7W 10:44 → JONCCHEMO 10:55
PROVIDERS: ATTEND Internal Medicine Hematology & Oncology
PROC: 3E013GC Introduction of Other Therapeutic Substance into Subcutaneous Tissue, Percutaneous Approach (ICD-10-PCS; principal; 2018-01-24)
DX: C20 Malignant neoplasm of rectum (principal); Z76.89 Persons encountering health services in other specified circumstances
CPT/HCPCS: 96372; J1447

== ENCOUNTER 2018-02-01 07:27 | Day surgery (SDC) | payer OTHER ==
[2018-02-01] MEDS ORDERED: DEXAMETHASONE INJECTION 10 MG in SODIUM CHLORIDE 50 ML IVPB ONE (10:00)
[2018-02-01] MEDS ORDERED: PALONOSETRON HCL 0.25 MG/5 ML VIAL IVPUSH ONE (10:00)
[2018-02-01 10:30] VITALS: BP 121/87; PULSE 101; TEMP 98.1
[2018-02-01] MEDS ORDERED: LEUCOVORIN INJECTION - 656 MG in DEXTROSE 5%-WATER - 250 ML IVPB ONE (10:30)
[2018-02-01 10:46] LABS: BASO % 0.2 % (0-2.0); EOS % 2.9 % (0-4.5); HEMATOCRIT 35.4 % (32.4-45.2); HEMOGLOBIN 12.1 GM/dL (10.7-15.3); LYMPH % 21.7 % (8-40); MCH 32.4 pg (25.7-33.7); MCHC 34.1 g/dl (32.0-36.0); MEAN CELL VOLUME 94.9 fl (80-96); MEAN PLT VOLUME 7.6 fl (7.5-11.1); NEUT % 61.2 % (42.8-82.8); PLATELET COUNT 207 K/MM3 (134-434); RBC 3.72 M/mm3 (3.60-5.2); RDW 15.3 % (11.6-15.6); WHITE BLOOD COUNT 4.6 K/mm3 (4.0-10.0)
[2018-02-01 11:13] LABS: BILIRUBIN,DIRECT 0.2 mg/dL (0.0-0.2); BILIRUBIN,TOTAL 0.5 mg/dL (0.2-1.0); MAGNESIUM 1.4 mg/dL (1.8-2.4); TOT PROT 7.2 g/dl (6.4-8.2)
[2018-02-01 11:14] LABS: ANION GAP 9 (8-16); BLOOD UREA NITROGEN 16 mg/dL (7-18); CALCIUM 8.8 mg/dL (8.5-10.1); CHLORIDE 110 mmol/L (98-107); CO2 19 mmol/L (21-32); CREATININE 1.7 mg/dL (0.55-1.02); GLUCOSE,RANDOM 114 mg/dL (74-106); POTASSIUM 4.3 mmol/L (3.5-5.1); SGOT/AST 18 U/L (15-37); SGPT/ALT 27 U/L (12-78); SODIUM 138 mmol/L (136-145)
[2018-02-01 11:16] LABS: ALK PHOS 129 U/L (45-117); BILIRUBIN,TOTAL 0.5 mg/dL (0.2-1.0); TOT PROT 7.3 g/dl (6.4-8.2)
[2018-02-01] MEDS ORDERED: SODIUM CHLORIDE 0.9% 500 ML INFUS.BAG IV ONE (12:15)
[2018-02-01] MEDS ORDERED: FLUOROURACIL 500 MG/10 ML VIAL IVPUSH ONE (12:30)
[2018-02-01] MEDS ORDERED: FLUOROURACIL 3,925 MG in SODIUM CHLORIDE 13.5 ML CP ONE (12:30)
[2018-02-01] MEDS ORDERED: SODIUM CHLORIDE 500 ML IV ONE (12:45)
[2018-02-01] MEDS: MAGNESIUM SULF 50% (8.12 MEQ/2 ML-1 GM VIAL) IVPB SCH ×2 (12:46→15:55)
[2018-02-01 14:42] LABS: ANISOCYTOSIS 1+; MACROCYTOSIS 1+
[2018-02-01] MEDS ORDERED: PORTA CATH FLUSH 10 ML IVPUSH ONE (19:07)
== END 2018-02-01 18:15 | disposition home or self-care (01) ==
LOC: JONCCHEMO 07:27 → J7W 11:41 → JONCCHEMO 18:15
PROVIDERS: ATTEND Internal Medicine Hematology & Oncology
PROC: 3E04305 Introduction of Other Antineoplastic into Central Vein, Percutaneous Approach (ICD-10-PCS; principal; 2018-02-01)
PROC: 3E04305 Introduction of Other Antineoplastic into Central Vein, Percutaneous Approach (ICD-10-PCS; 2018-02-01)
PROC: 3E043GC Introduction of Other Therapeutic Substance into Central Vein, Percutaneous Approach (ICD-10-PCS; 2018-02-01)
PROC: 3E0437Z Introduction of Electrolytic and Water Balance Substance into Central Vein, Percutaneous Approach (ICD-10-PCS; 2018-02-01)
DX: Z51.11 Encounter for antineoplastic chemotherapy (principal); C20 Malignant neoplasm of rectum
CPT/HCPCS: 36415; 80053; 80076; 83735; 85025; 96361; 96367; 96375; 96409; 96415; 96417; G0498; J1100; J2469; J9190

== ENCOUNTER 2018-02-04 07:28 | Day surgery (SDC) | payer OTHER ==
[2018-02-04] MEDS ORDERED: TBO-FILGRASTIM 480 MCG/0.8 ML DISP.SYRIN SQ ONE (10:00)
[2018-02-04 11:54] VITALS: BP 117/73; PULSE 91; TEMP 98.5
== END 2018-02-04 10:45 | disposition home or self-care (01) ==
LOC: JONCCHEMO 07:28
PROVIDERS: ATTEND Internal Medicine Hematology & Oncology
PROC: 3E013GC Introduction of Other Therapeutic Substance into Subcutaneous Tissue, Percutaneous Approach (ICD-10-PCS; principal; 2018-02-04)
DX: C20 Malignant neoplasm of rectum (principal); Z76.89 Persons encountering health services in other specified circumstances
CPT/HCPCS: 96372; J1447

== ENCOUNTER 2018-02-15 07:44 | Day surgery (SDC) | payer OTHER ==
[2018-02-15] MEDS ORDERED: PALONOSETRON HCL 0.25 MG/5 ML VIAL IVPUSH ONE (10:00)
[2018-02-15] MEDS ORDERED: DEXAMETHASONE INJECTION 10 MG in SODIUM CHLORIDE 50 ML IVPB ONE (10:00)
[2018-02-15] MEDS ORDERED: LEUCOVORIN INJECTION - 656 MG in DEXTROSE 5%-WATER - 250 ML IVPB ONE (10:30)
[2018-02-15 10:31] VITALS: TEMP 97.8
[2018-02-15 10:49] LABS: BASO % 0.3 % (0-2.0); HEMATOCRIT 33.6 % (32.4-45.2); HEMOGLOBIN 11.5 GM/dL (10.7-15.3); LYMPH % 21.2 % (8-40); MCH 32.4 pg (25.7-33.7); MCHC 34.2 g/dl (32.0-36.0); MEAN CELL VOLUME 94.6 fl (80-96); MEAN PLT VOLUME 7.5 fl (7.5-11.1); MONO % 14.8 % (3.8-10.2); NEUT % 61.7 % (42.8-82.8); PLATELET COUNT 186 K/MM3 (134-434); RBC 3.55 M/mm3 (3.60-5.2); RDW 15.1 % (11.6-15.6); WHITE BLOOD COUNT 4.9 K/mm3 (4.0-10.0)
[2018-02-15 11:13] LABS: ALBUMIN 3.8 g/dl (3.4-5.0); ALK PHOS 123 U/L (45-117); ANION GAP 8 MMOL/L (8-16); BILIRUBIN,TOTAL 0.5 mg/dL (0.2-1.0); BLOOD UREA NITROGEN 16 mg/dL (7-18); CALCIUM 8.6 mg/dL (8.5-10.1); CHLORIDE 107 mmol/L (98-107); CO2 22 mmol/L (21-32); CREATININE 1.8 mg/dL (0.55-1.02); GLUCOSE,RANDOM 116 mg/dL (74-106); POTASSIUM 4.2 mmol/L (3.5-5.1); SGOT/AST 20 U/L (15-37); SGPT/ALT 27 U/L (12-78); SODIUM 137 mmol/L (136-145); TOT PROT 6.9 g/dl (6.4-8.2)
[2018-02-15 11:14] LABS: ALBUMIN 3.8 g/dl (3.4-5.0); BILIRUBIN,TOTAL 0.6 mg/dL (0.2-1.0); MAGNESIUM 1.3 mg/dL (1.8-2.4); TOT PROT 6.9 g/dl (6.4-8.2)
[2018-02-15 11:17] LABS: BILIRUBIN,DIRECT 0.2 mg/dL (0.0-0.2)
[2018-02-15] MEDS ORDERED: FLUOROURACIL 500 MG/10 ML VIAL IVPUSH ONE (12:30)
[2018-02-15] MEDS ORDERED: SODIUM CHLORIDE 1,000 ML IV STA (12:40)
[2018-02-15] MEDS ORDERED: FLUOROURACIL 3,925 MG in SODIUM CHLORIDE 13.5 ML CP ONE (12:45)
[2018-02-15] MEDS ORDERED: MAGNESIUM 2GM/50ML STERILE WATER IVPB IVPB ONE (13:30)
--- NOTE | 2018-02-15 13:54 | CONSULT ---
Consult - text type - Consultation Consultation Note: Renal Consult for FABIAN on CKD This is 62 year old [place] woman with Hx of rectal ca s/p resection with colectomy, CKD who presents for Chemo infusion and noted to have Cr of 1.8. Cr was 1.7 last week and was in the 1.3-1.4 range before that. Pt is not taking any NSAIDs at home, no recent contrast exposure. Denies any N/V or high output from ostomy. No flank pain, no dysuria, skin rash. No EMMA/ARB or diuretics used at home. Getting IVF today. PMhx: as above Allergies: NKDA Family Hx: NC Social Hx: No T/A/D ROS: as per HPI. all other pertinent ros negative Home Medications Medication Instructions Recorded Amlodipine Besylate 5 mg PO HS 08/27/17 Levothyroxine [Synthroid -] 25 mcg PO DAILY 08/27/17 Metoprolol Succinate [Toprol Xl] 50 mg PO DAILY 08/27/17 Vital Signs Temperature 97.8 F 02/15/18 10:31 Pulse Rate 93 H 02/15/18 10:31 Respiratory Rate 20 02/15/18 10:31 Blood Pressure 124/87 02/15/18 10:31 O2 Sat by Pulse Oximetry (%) Intake & Output 02/12/18 02/13/18 02/14/18 02/15/18 23:59 23:59 23:59 23:59 Weight 67.585 kg NAD awake and alert Neck supple, no JVD RRR, no M/R CTA, no rales trace LE edema Ostomy in place CBC, BMP 02/15/18 10:30 02/15/18 10:30 Current Medications Sodium Chloride (Normal Saline -) 1,000 mls @ 500 mls/hr IV ASDIR STA Stop: 02/15/18 14:39 Magnesium Sulfate (Magnesium Sulfate) 2 gm IVPB ONCE ONE Stop: 02/15/18 14:01 62 year old [place] woman with Hx of rectal ca s/p resection with colectomy, CKD who presents for Chemo infusion and noted to have Cr of 1.8. #FABIAN vs. Progressive CKD #Hypomagnesemia #Metabolic acidosis (non-anion gap_ #Rectal Ca on Chemo No obvious nephrotoxic exposure seen Will check urine for UPCR, FeNa and Eosinophils Agree with IVF hydration today and later this week Repeat BMP later this week as well To get Mg Sulfate 4g IV today Trend serum bicarb, if consistently less then 20 may need bicarb supplementation Chemo as per Oncology Thank you will make arrangements for pt to follow at our office for her CKD.
[2018-02-15] MEDS ORDERED: MAGNESIUM SULF 50% (8.12 MEQ/2 ML-1 GM VIAL) IVPB ONE ×2 (14:45→15:30)
[2018-02-15 16:55] LABS: URINE APPEARANCE CLEAR; URINE BILIRUBIN NEGATIVE (<2.0 mg/dL); URINE COLOR COLORLESS; URINE GLUCOSE (UA) NEGATIVE (NEGATIVE); URINE KETONE NEGATIVE (NEGATIVE); URINE LEUK ESTERASE NEGATIVE (NEGATIVE); URINE NITRITE NEGATIVE (NEGATIVE); URINE PROTEIN NEGATIVE (NEGATIVE); URINE UROBILINOGEN NEGATIVE mg/dL (0.2-1.0)
[2018-02-15 17:00] LABS: URINE CREATININE 15.2 mg/dL (20-320)
[2018-02-15 18:49] VITALS: BP 131/71; PULSE 92
[2018-02-15 19:08] LABS: ANISOCYTOSIS 1+; MACROCYTOSIS 1+; OVALOCYTE 1+; PLATELET ESTIMATE ADEQUATE
== END 2018-02-15 18:50 | disposition home or self-care (01) ==
LOC: JONCCHEMO 07:44 → J7W 13:12 → JONCCHEMO 18:50
PROVIDERS: ATTEND Internal Medicine Hematology & Oncology
PROC: 3E04305 Introduction of Other Antineoplastic into Central Vein, Percutaneous Approach (ICD-10-PCS; principal; 2018-02-15)
PROC: 3E0437Z Introduction of Electrolytic and Water Balance Substance into Central Vein, Percutaneous Approach (ICD-10-PCS; 2018-02-15)
PROC: 3E04305 Introduction of Other Antineoplastic into Central Vein, Percutaneous Approach (ICD-10-PCS; 2018-02-15)
PROC: 3E043GC Introduction of Other Therapeutic Substance into Central Vein, Percutaneous Approach (ICD-10-PCS; 2018-02-15)
PROC: 3E043GC Introduction of Other Therapeutic Substance into Central Vein, Percutaneous Approach (ICD-10-PCS; 2018-02-15)
DX: Z51.11 Encounter for antineoplastic chemotherapy (principal); C20 Malignant neoplasm of rectum
CPT/HCPCS: 36415; 80053; 80076; 81003; 82570; 83735; 84156; 84300; 85025; 96361; 96365; 96366; 96375; 96415; 96417; G0498; J1100; J2469; J7030

== ENCOUNTER 2018-02-17 07:27 | Day surgery (SDC) | payer OTHER ==
[2018-02-17 18:26] VITALS: BP 105/69; PULSE 74; TEMP 98.8
[2018-02-17] MEDS ORDERED: PORTA CATH FLUSH 10 ML IVPUSH ONE (18:26)
== END 2018-02-17 17:25 | disposition home or self-care (01) ==
LOC: JONCCHEMO 07:27 → J7W 17:30
PROVIDERS: ATTEND Internal Medicine Hematology & Oncology
PROC: 0JPVXVZ Removal of Infusion Pump from Upper Extremity Subcutaneous Tissue and Fascia, External Approach (ICD-10-PCS; principal; 2018-02-17)
DX: Z53.8 Procedure and treatment not carried out for other reasons (principal)

== ENCOUNTER 2018-02-18 07:29 | Day surgery (SDC) | payer OTHER ==
[2018-02-18] MEDS ORDERED: SODIUM CHLORIDE 1,000 ML IV ONE (10:30)
[2018-02-18 11:46] LABS: ANION GAP 9 MMOL/L (8-16); BLOOD UREA NITROGEN 15 mg/dL (7-18); CALCIUM 8.1 mg/dL (8.5-10.1); CHLORIDE 109 mmol/L (98-107); CO2 21 mmol/L (21-32); CREATININE 1.5 mg/dL (0.55-1.02); GLUCOSE,RANDOM 128 mg/dL (74-106); MAGNESIUM 1.9 mg/dL (1.8-2.4); POTASSIUM 3.6 mmol/L (3.5-5.1); SODIUM 139 mmol/L (136-145)
[2018-02-18] MEDS ORDERED: TBO-FILGRASTIM 480 MCG/0.8 ML DISP.SYRIN SQ ONE (13:13)
[2018-02-18 13:38] VITALS: TEMP 98.4
[2018-02-18] MEDS ORDERED: PORTA CATH FLUSH 10 ML IVPUSH ONE (13:38)
[2018-02-18 13:40] VITALS: BP 110/66; PULSE 80
== END 2018-02-18 13:30 | disposition home or self-care (01) ==
LOC: JONCCHEMO 07:29 → J7W 09:46 → JONCCHEMO 13:30
PROVIDERS: ATTEND Internal Medicine Hematology & Oncology
PROC: 3E0337Z Introduction of Electrolytic and Water Balance Substance into Peripheral Vein, Percutaneous Approach (ICD-10-PCS; principal; 2018-02-18)
PROC: 3E013GC Introduction of Other Therapeutic Substance into Subcutaneous Tissue, Percutaneous Approach (ICD-10-PCS; 2018-02-18)
DX: C20 Malignant neoplasm of rectum (principal)
CPT/HCPCS: 36415; 80048; 83735; 96360; 96361; 96372; J1447; J7030

== ENCOUNTER 2018-02-23 11:51 | Day surgery (SDC) | payer OTHER ==
[2018-02-23] MEDS ORDERED: POTASSIUM CHLORIDE ORAL LIQUID 20 MEQ/15 ML PO ONE (12:45)
[2018-02-23] MEDS ORDERED: MAGNESIUM SULF 50% (8.12 MEQ/2 ML-1 GM VIAL) IVPB SCH (12:45)
[2018-02-23] MEDS ORDERED: SODIUM CHLORIDE 500 ML IV SCH (12:45)
[2018-02-23 17:19] VITALS: TEMP 98.2
[2018-02-23] MEDS ORDERED: PORTA CATH FLUSH 10 ML IVPUSH ONE (17:19)
[2018-02-23 17:20] VITALS: BP 120/74; PULSE 80
== END 2018-02-23 15:25 | disposition home or self-care (01) ==
LOC: JONCNONCHE 11:51 → J7W 12:18 → JONCNONCHE 15:25
PROVIDERS: ATTEND Internal Medicine Hematology & Oncology
PROC: 3E0337Z Introduction of Electrolytic and Water Balance Substance into Peripheral Vein, Percutaneous Approach (ICD-10-PCS; principal; 2018-02-23)
DX: Z76.89 Persons encountering health services in other specified circumstances (principal); C20 Malignant neoplasm of rectum
CPT/HCPCS: 96360; 96361

== ENCOUNTER → 2018-07-08 | Day surgery (SDC) | payer OTHER ==
[2018-07-08 10:50] VITALS: BP 104/69; PULSE 76
== END | disposition home or self-care (01) ==
LOC: JRADIR 09:08
PROVIDERS: ATTEND Internal Medicine Hematology & Oncology
PROC: 0JPT0XZ Removal of Tunneled Vascular Access Device from Trunk Subcutaneous Tissue and Fascia, Open Approach (ICD-10-PCS; principal; 2018-07-08)
DX: Z45.2 Encounter for adjustment and management of vascular access device (principal)
CPT/HCPCS: 36590; 77001-TC-FY